=== PATIENT | female | born 1960 | race Caucasian/White ===

== ENCOUNTER 2019-11-19 11:29 | Outpatient (CLI) | payer BC, SELFPAY ==
--- NOTE | ~2019-11-19 | XR_ITS ---
XR hip LT min 3V w AP pelvis 11/19/2019 12:20 Indication: Left hip pain Procedure: AP pelvis and 3 views left hip Comparison: No prior studies for comparison. Findings: No fracture or traumatic malalignment. There is a right total hip arthroplasty. Pelvic ring s are intact. No sacral abnormality is seen. No soft tissue abnormality. Impression: 1: No acute bone or joint abnormality. Reviewed, dictated and finalized at location B. Impression: 1: No acute bone or joint abnormality.
--- NOTE | ~2019-11-19 | XR_ITS ---
EXAMINATION: XR hand BI arthritis min 3V DATE: 11/19/2019 12:20 INDICATION: Pain in joints of right hand. TECHNIQUE: 4 views of right hand and 4 views of left hand on a total of 7 radiographs were obtained. COMPARISON: Right hand radiograph 11/11/2005 FINDINGS: RIGHT HAND: Bone alignment is normal. No acute fracture. There is an old healed fracture of diaphysis of fifth metacarpal. There is mild osteoarthritis of triscaphe joint, first carpometacarpal joint, f irst and second metacarpophalangeal joints, and most of the interphalangeal joints. LEFT HAND: Bone alignment is normal. No fracture. There is mild osteoarthritis of triscaphe joint, fi rst carpometacarpal joint, first-third metacarpophalangeal joints, and most of the interphalangeal leona ints. IMPRESSION: 1. Polyarticular osteoarthritis. Reviewed, dictated and finalized at location A.
== END 2019-11-19 11:30 | disposition home or self-care (01) ==
PROVIDERS: PCP Family Medicine; Visit Provider Physician Assistant
DX: R20.0 Anesthesia of skin (principal); R20.2 Paresthesia of skin; M19.041 Primary osteoarthritis, right hand; M19.042 Primary osteoarthritis, left hand
CPT/HCPCS: 73130; 73502

== ENCOUNTER 2020-09-16 14:43 | Outpatient (CLI) | payer BC, SELFPAY ==
--- NOTE | ~2020-09-16 | MM_ITS ---
EXAMINATION: MM screening [place] BI w roberto HISTORY: Screening mammogram TECHNIQUE: Craniocaudal and mediolateral oblique 3-D tomosynthesis images were obtained and synthetic 2-D images were generated. CAD analysis was submitted and interpreted. COMPARISON: 12/17/2012 BREAST PARENCHYMAL COMPOSITION: There are scattered areas of fibroglandular density. FINDINGS: There is no evidence of suspicious mass, calcification, or architectural distortion to sugg est malignancy in either breast. There has been no suspicious interval change. IMPRESSION: 1. No mammographic evidence of malignancy. 2. Recommend routine screening mammography in one year. BI-RADS Category 1: Negative Reviewed, dictated and finalized at location A.
== END 2020-09-16 14:44 | disposition home or self-care (01) ==
LOC: ANHIMG 14:45
PROVIDERS: PCP Family Medicine; Visit Provider Obstetrics & Gynecology
DX: Z12.31 Encounter for screening mammogram for malignant neoplasm of breast (principal)
CPT/HCPCS: 77063; 77067

== ENCOUNTER 2021-05-29 09:56 | Outpatient (CLI) | payer BC, OTHER, SELFPAY ==
--- NOTE | ~2021-05-29 | DEXA_ITS ---
Bone Density Report Name: ALLYSSA GALVEZ Age: 61 Sex: Female Ethnicity: White Date of : 1960 Indication: postmenopausal; height loss; Referring Provider: MASOOD REBOLLEDO Study: Bone densitometry was performed. Exam Date: May 29, 2021 Accession number: [id number] Bone Density: Region BMD T-score Z-score Classification AP Spine (L1, L2, L3) 1.041 0.2 1.8 Normal Femoral Neck (Left) 0.816 -0.3 1.1 Normal Total Hip (Left) 0.960 0.1 1.2 Normal World Health Organization criteria for BMD impression classify patients as: Normal (T-score at or above -1.0), Osteopenia (T-score between -1.0 and -2.5), or Osteoporosis (T-score at or below -2.5). 10-year Fracture Risk: FRAX not reported because: All T-scores for Spine Total, Hip Total, Femoral Neck at or above -1.0 Clinical Information Provided by Patient: Patient maximum height was 70 Menopause Age: 54 No regular weight bearing exercise Does not regularly consume dairy products Drinks caffeinated beverages Onset of menses at age 13 Number of children 3 Impression: The patient has normal bone mass. Discussion: BONE DENSITY IS ABOVE THE MINIMUM DESIRABLE LEVEL AT ALL SKELETAL SITES TESTED. This patient?s bone mineral density is above the minimum desirable level (T-score -1.0 or better) at all sites measured. The patient should follow a healthful lifestyle (good nutrition with adequate calcium and vitamin D, and appropriate weight-bearing exercise). Follow-Up: Consider repeating this study in 5 years or sooner if there is some new clinical indication. Reported by: [facility] on 05/29/2021 10:13:00 AM. Reviewed, dictated and finalized at location Shara DAILEY
== END 2021-05-29 09:57 | disposition home or self-care (01) ==
LOC: ANHIMG 09:58
PROVIDERS: PCP Family Medicine; Visit Provider Family Medicine
DX: Z78.0 Asymptomatic menopausal state (principal)
CPT/HCPCS: 77080

== ENCOUNTER 2022-04-21 07:11 | Outpatient (CLI) | payer OTHER, BC, SELFPAY ==
--- NOTE | ~2022-04-21 | XR_ITS ---
XR lumbar spine min 4V 04/21/2022 07:40 Indication: Chronic low back pain Procedure: 5 views lumbar spine Comparison: 09/25/2005 Findings: There is disc narrowing at all lumbar levels. Vertebral body heights are maintained. There is facet hypertrophy at L3-4, L4-5 and L5-S1. No evidence for spondylolisthesis. There is atheroscler osis of the aorta. There is mild levoscoliosis. Pedicles intact. There is a right total hip arthropla sty. Impression: 1: Moderate lumbar spondylosis. Reviewed, dictated and finalized at location A. GER INSTALLATION Impression: 1: Moderate lumbar spondylosis.
--- NOTE | ~2022-04-21 | XR_ITS ---
XR cervical spine 4-5V 04/21/2022 07:40 Indication: Chronic neck pain Procedure: 5 views of the cervical spine Comparison: No prior studies for comparison. Findings: There is disc narrowing with hypertrophic endplate changes at C5-6 and C6-7. There are prom inent ventral osteophytes at multiple levels. Vertebral body heights are maintained. No prevertebral soft tissue swelling. There is multilevel uncinate hypertrophy. Lung apices are normal. There is marquis tid atherosclerosis. Odontoid process is normal. Impression: 1: Moderate cervical spondylosis. Reviewed, dictated and finalized at location A. ODITY DIRECTOR Impression: 1: Moderate cervical spondylosis.
== END 2022-04-21 07:12 | disposition home or self-care (01) ==
PROVIDERS: PCP Family Medicine; Visit Provider Nurse Practitioner Family
DX: M54.2 Cervicalgia (principal); M54.50 Low back pain, unspecified; G89.29 Other chronic pain; M43.06 Spondylolysis, lumbar region; M43.02 Spondylolysis, cervical region
CPT/HCPCS: 72050; 72110

== ENCOUNTER 2022-05-21 01:08 | Day surgery (SDC) | payer OTHER, SELFPAY ==
[2022-05-15 16:40] VITALS: BMI 26.2
[2022-05-21 11:15] VITALS: BP 125/69; PULSE 67; RESP 17; TEMP 36.1; O2SAT 98; BMI 25.9
--- NOTE | 2022-05-21 11:16 | PM.HPGS ---
History of Present Illness History of Present Illness Consent: Risks, benefits, and alternatives have been discussed and questions answered. Patient agrees to proceed with procedure. Chief complaint: neoplasm screening Narrative: Jesse Maya is a 62 year old female Presents for screening colonoscopy. Patient reports that her current weight appetite and bowel movements are normal. Patient denies abdominal pain. She has had no bleeding. Family history noncontributory. Patient has never had a prior colonoscopy. Review of Systems Review of Systems: Review of systems noncontributory. FORMERLY [facility] Past Medical History Medical History (Updated 05/21/22 @ 11:18 by Diony Juarez MD) Anxiety Arthritis of left knee Back pain Carpal tunnel syndrome Chronic, continuous use of opioids COPD, mild Encounter for immunization ABY (generalized anxiety disorder) High risk medication use Hyperlipidemia Hypothyroidism Insomnia Left hip pain Lumbago of lumbar region with sciatica Lumbar spine pain secondary to spondylosis Numbness and tingling in both hands Osteoarthritis involving multiple joints on both sides of body Pain of joint of both hands Pneumonia right Taking multiple medications for chronic disease UGI bleed from gastric ulcers due to non-steroidal therapy Surgical History Surgical History History of ear surgery left ear- multiple surgeries History of hip surgery right hip- LACHO 2011 Anterior Family History Family History Mother Diabetes mellitus Grandparent Family history of malignant neoplasm of breast in first degree relative Social History Social History Smoking packs per day: 1 Smoking cigarettes per day: 20.0 Years smoked: 35 Smoking pack-years: 35.00 Smoking status: Former smoker Tobacco type: cigarettes Second hand tobacco smoke exposure: No Smoking end date: 03/04/12 Alcohol intake: current Alcohol use details: consumes 3 hard liquor drinks socially Substance use: never Substance use type: does not use Living arrangements: with family Occupation/Education: occupation 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[employer] Gender identity (if verbalized by the patient): Female Spiritual care concerns: No Meds Home Medications and Allergies Home Medications Medication Instructions Recorded Confirmed Type trazodone 50 mg tablet 50 mg PO QHS PRN sleep #90 tabs 01/24/22 05/21/22 Rx hydrocodone 5 mg-acetaminophen 325 1 tablet PO Q6H PRN pain #120 tabs 05/17/22 05/21/22 Rx mg tablet Allergies Allergy/AdvReac Type Severity Reaction Status Date / Time Penicillins Allergy Severe Hives Verified 05/21/22 11:08 NSAIDS (Non-Steroidal AdvReac Unknown BLEEDING Verified 05/21/22 11:08 Anti-Inflamma ULCER Exam Narrative: Physical exam reveals patient be alert. Vital signs stable. HEENT exam is unremarkable. Patient anicteric. Lungs are clear to auscultation and percussion. Heart is without murmur or extra sounds. Abdominal exam bowel sounds are present soft nontender with no hepatosplenomegaly. Digital external rectal exam is normal. Assessment and Plan Assessment and plan (1) Encounter for screening colonoscopy: Code(s): Z12.11 - Encounter for screening for malignant neoplasm of colon Status: Acute Assessment and Plan: Patient presents for screening colonoscopy. She appears to be at average risk for colon polyps. Further recommendations may be given after endoscopy.
[2022-05-21] MEDS: LACTATED RINGERS 1,000 ML 150 ML IV CONT (11:24)
--- NOTE | 2022-05-21 12:03 | WPDANESEPPF ---
Anes - Initial Pre Proc Eval Procedure: Operation Date: 05/21/22 12:30 Proposed Procedures p Screening Colonoscopy - Diony Juarez MD Date/Time: 05/21/22 12:03 Surgeon: Diony Juarez MD Pre Op Diagnosis: neoplasm screening Patient Data Age: 62 Gender: F Height: 1.75 m Weight: 79.7 kg Last Vital Signs Temp 97 F L 05/21/22 11:15 Pulse 67 05/21/22 11:15 Resp 17 05/21/22 11:15 BP 125/69 05/21/22 11:15 Pulse Ox 98 05/21/22 11:15 O2 Del Method Room Air 05/21/22 11:15 Allergies Allergy/AdvReac Type Severity Reaction Status Date / Time Penicillins Allergy Severe Hives Verified 05/21/22 11:08 NSAIDS (Non-Steroidal AdvReac Unknown BLEEDING Verified 05/21/22 11:08 Anti-Inflamma ULCER Home Medications Medication Instructions Recorded Confirmed Type trazodone 50 mg tablet 50 mg PO QHS PRN sleep #90 tabs 01/24/22 05/21/22 Rx hydrocodone 5 mg-acetaminophen 325 1 tablet PO Q6H PRN pain #120 tabs 05/17/22 05/21/22 Rx mg tablet Patient hx anesthesia problems: none Family hx anesthesia problems: none Results Review: All pre-operative results and documents have been reviewed as part of the pre-operative evaluation. FORMERLY [facility] Past Medical History Medical History (Updated 05/21/22 @ 11:18 by Diony Juarez MD) Anxiety Arthritis of left knee Back pain Carpal tunnel syndrome Chronic, continuous use of opioids COPD, mild Encounter for immunization ABY (generalized anxiety disorder) High risk medication use Hyperlipidemia Hypothyroidism Insomnia Left hip pain Lumbago of lumbar region with sciatica Lumbar spine pain secondary to spondylosis Numbness and tingling in both hands Osteoarthritis involving multiple joints on both sides of body Pain of joint of both hands Pneumonia right Taking multiple medications for chronic disease UGI bleed from gastric ulcers due to non-steroidal therapy Surgical History Surgical History History of ear surgery left ear- multiple surgeries History of hip surgery right hip- LACHO 2010 Anterior Family History Family History Mother Diabetes mellitus Grandparent Family history of malignant neoplasm of breast in first degree relative Social History Social History Smoking packs per day: 1 Smoking cigarettes per day: 20.0 Years smoked: 35 Smoking pack-years: 35.00 Smoking status: Former smoker Tobacco type: cigarettes Second hand tobacco smoke exposure: No Smoking end date: 03/04/12 Alcohol intake: current Alcohol use details: consumes 3 hard liquor drinks socially Substance use: never Substance use type: does not use Living arrangements: with family Occupation/Education: occupation 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 Informed Consent: The patient's anesthetic plan and its attendant risks and benefits were discussed with the patient/family/POA. Questions were solicited and answers provided to the satisfaction of the patient/family/POA.
[2022-05-21 12:53] VITALS: BP 117/86; PULSE 80; RESP 18; O2SAT 98
[2022-05-21 13:03] VITALS: BP 120/76; PULSE 77; RESP 16; O2SAT 97
[2022-05-21 13:13] VITALS: BP 117/76; PULSE 77; RESP 24; O2SAT 100
== END 2022-05-21 13:23 | disposition home or self-care (01) ==
PROVIDERS: PCP Family Medicine; Visit Provider Internal Medicine Gastroenterology
PROC: 0DJD8ZZ Inspection of Lower Intestinal Tract, Via Natural or Artificial Opening Endoscopic (ICD-10-PCS; CPT 45378; principal; 2022-05-21 12:30)
DX: Z12.11 Encounter for screening for malignant neoplasm of colon (principal); D12.2 Benign neoplasm of ascending colon; K64.8 Other hemorrhoids; K57.32 Diverticulitis of large intestine without perforation or abscess without bleeding; F41.1 Generalized anxiety disorder; Z87.891 Personal history of nicotine dependence; Z79.891 Long term (current) use of opiate analgesic
CPT/HCPCS: 45385; 88305; J2704; J7120

== ENCOUNTER 2022-07-09 06:37 | Outpatient (CLI) | payer OTHER, SELFPAY ==
--- NOTE | ~2022-07-09 | MR_ITS ---
EXAMINATION: MR knee LT wo con DATE: 07/09/2022 07:40 INDICATION: Left knee osteoarthritis. TECHNIQUE: Magnetic resonance imaging (MRI) of the left knee was performed without intravenous contra st. Sequences included axial PD-weighted FS FSE, coronal PD-weighted FSE and PD-weighted FS FSE, sagi ttal PD-weighted FSE, and sagittal T2-weighted FS FSE. COMPARISON: Left knee radiographs 03/27/2022 FINDINGS: Medial compartment: Medial meniscus is normal. There is cartilage surface irregularity of femoral condyle and tibial cond yle. Osteophytes are noted. Lateral compartment: There is a complex tear of body and posterior horn of lateral meniscus. There is partial-thickness ca rtilage loss of femoral condyle, deep at the central and posterior articular surface. There is partia l-thickness cartilage loss of tibial condyle, deep at the posterolateral articular surface, there is mild subchondral edema-like marrow signal intensity. Osteophytes are noted. Patellofemoral compartment: There is cartilage surface irregularity of patella. There is full-thickness cartilage loss of central trochlea. Osteophytes are noted. Ligaments and tendons: The anterior and posterior cruciate ligaments are normal. There are changes of prior sprains of media l collateral ligament and fibular collateral ligament characterized by thickening and increased signa l intensity proximally. There is mild patellar tendinopathy. Fluid: There is a moderate-sized knee joint effusion. There is trace fluid in a Glynn's cyst. There is mild prepatellar and superficial infrapatellar bursitis. IMPRESSION: 1. Severe chondrosis of patellofemoral compartment, moderate chondrosis of lateral compartment, and m ild chondrosis of medial compartment. 2. Complex tear of lateral meniscus. 3. Moderate-sized knee joint effusion. Reviewed, dictated and finalized at location A. IMPRESSION: 1. Severe chondrosis of patellofemoral compartment, moderate chondrosis of late ral compartment, and mild chondrosis of medial compartment. 2. Complex tear of lateral meniscus. 3. Moderate-sized knee joint effusion.
== END 2022-07-09 06:38 | disposition home or self-care (01) ==
PROVIDERS: PCP Family Medicine; Visit Provider Orthopaedic Surgery
DX: M17.12 Unilateral primary osteoarthritis, left knee (principal); M22.2X2 Patellofemoral disorders, left knee; S83.282A Other tear of lateral meniscus, current injury, left knee, initial encounter; M25.462 Effusion, left knee
CPT/HCPCS: 73721

== ENCOUNTER 2022-08-23 09:16 | Outpatient (CLI) | payer OTHER, SELFPAY ==
--- NOTE | 2022-08-23 09:45 | ECG_ITS ---
Measurements Intervals [place] Rate: 63 P: 66 IL: 171 QRS: 40 QRSD: 98 T: 68 QT: 396 QTc: 407 Interpretive Statements SINUS RHYTHM NO PREVIOUS ECG AVAILABLE FOR COMPARISON Electronically Signed On 08-23-2022 13:33:17 CDT by Navya Madrid M.D.
== END 2022-08-23 09:17 | disposition home or self-care (01) ==
LOC: ANHSURGERY 09:20
PROVIDERS: PCP Family Medicine; Visit Provider Orthopaedic Surgery
DX: F17.210 Nicotine dependence, cigarettes, uncomplicated (principal)
CPT/HCPCS: 93005

== ENCOUNTER 2022-08-27 00:29 | Day surgery (SDC) | payer OTHER, SELFPAY ==
[2022-08-22 16:17] VITALS: BMI 25.7
--- NOTE | 2022-08-22 16:33 | PC.NURSE ---
Report to the Outpatient Waiting Room, entrance under the green pavilion located off [facility], at time 0600 on date _08/27/22. Planned Procedure Time: _0730. Time changes happen often and if your time is changed the preop area will call you the afternoon before. - You and your visitor will be asked to self-screen and do not enter if you have any COVID symptoms. - A mask is optional within the hospital at this time. Patients may have clear liquids (water, carbonated beverages, clear teas, apple juice) until 3 hours prior to surgery with a maximum of 20 ounces. - No food from midnight until time of surgery - Infants may have breast milk until 4 hours before surgery, infant formula 6 hours prior to surgery. - Children will be allowed to drink immediately following surgery. If applicable, please bring a bottle or sippy cup to assist with drinking. Juice, water, soda, and popsicles are readily available. For infants on formula, please bring formula the day of surgery. Pacifiers are allowed. Take the following medications with a SIP of water the morning of surgery: _hydrocodone____ DO NOT STOP ANY OF YOUR OTHER PRESCRIPTION MEDICATIONS PRIOR TO SURGERY ?EXCEPT THE FOLLOWING Medications to discontinue per physician _n/a Date to take last dose Please no make-up, nail kyrgyz, hairspray, perfume, deodorant, or body powder the day of surgery. No jewelry (including any body piercings) or valuables the day of surgery, leave them at home. Please take a shower or bath the night before, or the morning of, surgery with an antibacterial soap. Wear comfortable, loose fitting clothing. Children are encouraged to wear pajamas. - Jewelry must be removed prior to entering the operating room. Rings and piercings that are not removed may be cut off. - The hospital will not accept responsibility for valuables. - Please leave all valuables, including medications, at home the day of surgery. If you are going home after surgery, a licensed cdl a driver must drive you home. - NO public transportation without another adult if you receive anesthesia. - We recommend that an adult stay with you for 24 hours following discharge. - We also recommend that you do not drive, make important decision, drink alcoholic beverages, or take any drugs that were not prescribed by your health care provider for at least 24 hours after your discharge time. For Pediatric surgeries, we recommend two adults accompany the child home. Follow any additional instructions given to you from your surgeon. If you or anyone in your household have experienced Covid symptoms in the past week, please notify your surgeon or the nurse liaison at the phone number below for possible testing. Telephone instructions given to Jesse Maya_and asked if any additional questions and then verbalized understanding. Patient advised to call surgeon office or pre surgery nurse liaison [phone] if any additional questions.
[2022-08-27] VITALS (10 sets, daily range): BP systolic 99–118; BP diastolic 58–73; PULSE 56–82; RESP 10–18; TEMP 36.2–36.6; O2SAT 94–100
--- NOTE | 2022-08-27 06:50 | WPDANESEPPF ---
Anes - Initial Pre Proc Eval Procedure: Operation Date: 08/27/22 07:30 Proposed Procedures p Left Knee Arthroscopy with Meniscectomy - Aiden Schmitt MD Date/Time: 08/27/22 06:50 Surgeon: Aiden Schmitt MD Pre Op Diagnosis: Lt Knee Lateral Meniscal Tear Patient Data Age: 62 Gender: F Height: 1.75 m Weight: 79 kg Allergies Allergy/AdvReac Type Severity Reaction Status Date / Time Penicillins Allergy Severe Hives Verified 08/23/22 08:56 NSAIDS (Non-Steroidal AdvReac Unknown BLEEDING Verified 08/23/22 08:56 Anti-Inflamma ULCER Home Medications Medication Instructions Recorded Confirmed Type trazodone 100 mg tablet 100 mg PO QHS #90 tabs 07/27/22 08/23/22 Rx hydrocodone 5 mg-acetaminophen 325 1 tablet PO Q6H PRN pain #120 tabs 08/16/22 08/23/22 Rx mg tablet Patient hx anesthesia problems: none Family hx anesthesia problems: none Results Review: All pre-operative results and documents have been reviewed as part of the pre-operative evaluation. [facility] Past Medical History Medical History Anxiety Arthritis of left knee Back pain Carpal tunnel syndrome Chronic, continuous use of opioids Encounter for immunization ABY (generalized anxiety disorder) High risk medication use Hyperlipidemia Hypothyroidism Insomnia Left hip pain Lumbago of lumbar region with sciatica Lumbar spine pain secondary to spondylosis Numbness and tingling in both hands Osteoarthritis involving multiple joints on both sides of body Pain of joint of both hands Pneumonia right Taking multiple medications for chronic disease Tear of lateral meniscus of left knee UGI bleed from gastric ulcers due to non-steroidal therapy Surgical History Surgical History History of ear surgery left ear- multiple surgeries History of hip surgery right hip- LACHO 2010 Anterior Family History Family History Mother Diabetes mellitus Grandparent Family history of malignant neoplasm of breast in first degree relative Social History Social History Smoking packs per day: 1 Smoking cigarettes per day: 20.0 Years smoked: 35 Smoking pack-years: 35.00 Smoking status: Former smoker Tobacco type: cigarettes Second hand tobacco smoke exposure: No Smoking end date: 03/04/12 Alcohol intake: current Alcohol use details: consumes 3 hard liquor drinks socially Substance use: never Substance use type: does not use Current Housing: Decline to Answer Concerned About Future Housing: Decline to Answer Difficulty Paying Gas/Electric Bills: Decline to Answer Difficulty Paying for Meds: Decline to Answer Currently Unemployed: Decline to Answer Education: Decline to Answer Difficulty w/ Childcare or Family Care: Decline to Answer Living arrangements: with family Occupation/Education: occupation 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 Informed Consent: The patient's anesthetic plan and its attendant risks and benefits were discussed with the patient/family/POA. Questions were solicited and answers provided to the satisfaction of the patient/family/POA.
[2022-08-27] MEDS: LACTATED RINGERS 1,000 ML 30 ML IV CONT ×2 (07:00→08:22)
[2022-08-27] MEDS: ACETAMINOPHEN 500 MG TABLET 1000 MG PO (07:00)
--- NOTE | 2022-08-27 07:17 | WPDHPUPDATE1 ---
History and Physical Update Update Date/Time: 08/27/22 07:17 History and Physical has been reviewed, including an updated exam of the patient. There are NO changes in the patient's condition. Risks, benefits, and alternatives have been discussed and questions answered. Patient agrees to proceed with procedure.
[2022-08-27] MEDS: ceFAZolin 2 GM/D5W 50 ML 2 GM/50 ML BAG IVPB (07:24)
[2022-08-27] MEDS: LIDOCAINE HCL 1% LOCAL INJ 10 ML VIAL 20 ML INFILTRATE (07:49)
--- NOTE | 2022-08-27 08:27 | P.OP_ITS ---
Procedure Note - Detailed Date of Procedure 08/27/22 Pre-op Diagnosis Lt Knee Lateral Meniscal Tear Post-op Diagnosis Same Procedure Performed left knee arthroscopy partial lateral meniscectomy Surgeon Aiden Schmitt MD Anesthesia General Description of Procedure The patient was identified and proper site identified and she was taken to the operating room, transferred to the OR table placing her supine taking care to pad the torso and extremities. After general anesthetic induction and intubation, a nonsterile tourniquet was placed high on the left thigh but was not inflated. The left lower extremity was positioned, prepped and draped in usual sterile fashion. 10 cc of 1% lidocaine was injected into the subcutaneous tissue in the area of the portals at start of the procedure, and an additional 10 at the end. The portals were established and the arthroscopy was carried out. There was extensive grade 2 and early three changes noted in the anterior compartment. Medial articular meniscal cartilage was in fairly decent shape. Laterally is extensive grade 3 and early grade 4 changes of the articular cartilage was complex tearing of the lateral meniscus from the posterior horn in the midbody. This was contoured back to stable rim with basket forceps and shaver. There was also some prominent synovial tissue anteriorly overlying the anterior horns of both menisci and this was debrided with the shaver. Arthrocare Wand was used for hemostasis. The knee was flushed with a copious a mount of arthroscopic fluid and equipment was removed. Portals were closed with three O nylon suture and a sterile dressing was applied. She tolerated the procedure well, was awakened, extubated and taken to recovery area in stable condition. There were no known intraoperative complications. Estimated blood loss was negligible; she received perioperative antibiotics. Estimated Blood Loss 5 Tourniquet Time 0 Drains No Packing No Pathology None sent Complications No immediate complications Condition Stable Disposition PACU [facility] Billing Surgery - Charge Forward: Surgery Billing ([id number])
[2022-08-27] MEDS: fentaNYL CITRATE INJ (*CRX) 100 MCG/2 ML VIAL 25 MCG IV PUSH ×6 (08:44→09:09)
[2022-08-27] MEDS: oxyCODONE HCL (*CRX) 5 MG TAB IR PO (09:41)
== END 2022-08-27 10:44 | disposition home or self-care (01) ==
PROVIDERS: PCP Family Medicine; Visit Provider Orthopaedic Surgery
PROC: (CPT 29870; principal; 2022-08-27 07:30)
DX: M23.352 Other meniscus derangements, posterior horn of lateral meniscus, left knee (principal); F41.1 Generalized anxiety disorder; Z87.891 Personal history of nicotine dependence
CPT/HCPCS: 29881; A9270; J0690; J1100; J1170; J2250; J2405; J2704; J3010; J7120

== ENCOUNTER 2023-05-06 07:06 | Outpatient (CLI) | payer OTHER, SELFPAY ==
--- NOTE | ~2023-05-06 | XR_ITS ---
EXAMINATION: XR knee LT min 4V DATE: 05/06/2023 07:26 INDICATION: History of arthroscopic knee surgery TECHNIQUE: Four views of the left knee were obtained. COMPARISON: 03/27/2022 FINDINGS: Alignment is normal. No fracture or osteochondral lesion. There is tricompartmental osteoar thritis, moderate in the lateral compartment. There is a moderate-sized chronic knee joint effusion. Calcified atherosclerosis is noted. IMPRESSION: 1. Osteoarthritis and moderate size chronic knee joint effusion without acute osseous abnormality. Reviewed, dictated and finalized at location B. [employer] INSPECTOR IMPRESSION: 1. Osteoarthritis and moderate size chronic knee joint effusion without acute o sseous abnormality.
== END 2023-05-06 07:07 | disposition home or self-care (01) ==
PROVIDERS: PCP Family Medicine; Visit Provider Orthopaedic Surgery
DX: Z98.890 Other specified postprocedural states (principal); M17.12 Unilateral primary osteoarthritis, left knee; M25.462 Effusion, left knee
CPT/HCPCS: 73564

== ENCOUNTER 2023-09-07 09:29 | Outpatient (CLI) | payer OTHER, SELFPAY ==
--- NOTE | ~2023-09-07 | MR_ITS ---
EXAMINATION: MR shoulder LT wo con DATE: 09/07/2023 10:22 INDICATION: Incomplete rotator cuff tear or rupture of left shoulder. TECHNIQUE: Magnetic resonance imaging (MRI) of the left shoulder was performed without intravenous co ntrast. Sequences included axial PD-weighted FS FSE, coronal oblique PD-weighted FS FSE and T2-weight ed FS FSE, and sagittal oblique T2-weighted FS FSE and T1-weighted FSE. COMPARISON: Left shoulder radiograph 08/26/2023 FINDINGS: Coracoacromial arch: The acromion undersurface is curved in morphology (type II). There is moderate acromioclavicular join t osteoarthritis. Subacromial spurring is noted. There is severe subacromial/subdeltoid bursitis. Rotator cuff: There is a bursal-sided tear of supraspinatus tendon measuring 5 mm anterior to posterior by 11 mm pr oximal to distal by 80% tendon thickness. There is moderate infraspinatus tendinopathy. Teres minor t endon is normal. There is mild subscapularis tendinopathy. The rotator cuff muscle bellies are normal . Biceps tendon and glenoid labrum: Biceps tendon is in bicipital groove. Intra-articular biceps tendon is normal. Glenoid labrum is norm al. Fluid: There is no glenohumeral joint effusion. Bones/cartilage: There is partial-thickness cartilage loss of glenoid, deep at the central glenoid. There is shallow p artial-thickness cartilage loss of humeral head. Osteophytes are noted. IMPRESSION: 1. Bursal-sided partial thickness rotator cuff tear. 2. Moderate glenohumeral joint chondrosis. 3. Moderate acromioclavicular joint osteoarthritis. 4. Severe subacromial/subdeltoid bursitis. Reviewed, dictated and finalized at location A.
== END 2023-09-07 09:30 | disposition home or self-care (01) ==
PROVIDERS: PCP Family Medicine; Visit Provider Orthopaedic Surgery
DX: M75.112 Incomplete rotator cuff tear or rupture of left shoulder, not specified as traumatic (principal); M94.212 Chondromalacia, left shoulder; M19.012 Primary osteoarthritis, left shoulder; M75.52 Bursitis of left shoulder
CPT/HCPCS: 73221

== ENCOUNTER 2023-10-15 11:34 | Outpatient (CLI) | payer OTHER, SELFPAY ==
--- NOTE | 2023-10-15 11:49 | ECG_ITS ---
Test Date: 2023-10-15 11:57:44 Measurements Intervals [place] Rate: 56 P: -2 WY: 160 QRS: 34 QRSD: 106 T: 61 QT: 417 QTc: 403 Interpretive Statements SINUS BRADYCARDIA LOW QRS VOLTAGE IN PRECORDIAL LEADS [QRS DEFLECTION < 1.0 mV IN CHEST LEADS] No previous ECG available for comparison Electronically Signed On 10-15-2023 12:02:19 CDT by Breanna Pedraza M.D.
[2023-10-15 12:09] LABS: Hematocrit 38.5 % (37.0-47.0); Hemoglobin 12.5 g/dL (12.0-15.0)
== END 2023-10-15 11:35 | disposition home or self-care (01) ==
PROVIDERS: Anesthesiology; PCP Family Medicine; Visit Provider Orthopaedic Surgery
DX: Z01.818 Encounter for other preprocedural examination (principal); D64.9 Anemia, unspecified; F17.200 Nicotine dependence, unspecified, uncomplicated
CPT/HCPCS: 36415; 85014; 85018; 93005

== ENCOUNTER 2023-10-18 00:34 | Day surgery (SDC) | payer OTHER, SELFPAY ==
[2023-10-14 09:59] VITALS: BMI 26.0
--- NOTE | 2023-10-14 10:03 | PC.NURSE ---
Report to the Outpatient Waiting Room, entrance under the green pavilion located off [facility], at time _1000__ on date 10/18/23 _. Planned Procedure Time: _1200_. Time changes happen often and if your time is changed the preop area will call you the afternoon before. - You and your visitor will be asked to self-screen and do not enter if you have any COVID symptoms. - A mask is optional within the hospital at this time. Patients may have clear liquids (water, carbonated beverages, clear teas, apple juice) until 3 hours prior to surgery with a maximum of 20 ounces. - No food from midnight until time of surgery - Infants may have breast milk until 4 hours before surgery, formula 6 hours prior to surgery. - Children will be allowed to drink immediately following surgery. If applicable, please bring a bottle or sippy cup to assist with drinking. Juice, water, soda, and popsicles are readily available. For infants on formula, please bring formula the day of surgery. Pacifiers are allowed. Take the following medications with a SIP of water the morning of surgery: ___PAIN PILL_IF NEEDED DO NOT STOP ANY OF YOUR OTHER PRESCRIPTION MEDICATIONS PRIOR TO SURGERY ?EXCEPT THE FOLLOWING Medications to discontinue per physician VITAMINS AND SUPPLIMENTS Date to take last dose 10/15/23 Please no make-up, nail eritrean, hairspray, perfume, deodorant, or body powder the day of surgery. No jewelry (including any body piercings) or valuables the day of surgery, leave them at home. Please take a shower or bath the night before, or the morning of, surgery with an antibacterial soap. Wear comfortable, loose fitting clothing. Children are encouraged to wear pajamas. - Jewelry must be removed prior to entering the operating room. Rings and piercings that are not removed may be cut off. - The hospital will not accept responsibility for valuables. - Please leave all valuables, including medications, at home the day of surgery. If you are going home after surgery, a licensed drivers license examiner must drive you home. - NO public transportation without another adult if you receive anesthesia. - We recommend that an adult stay with you for 24 hours following discharge. - We also recommend that you do not drive, make important decision, drink alcoholic beverages, or take any drugs that were not prescribed by your health care provider for at least 24 hours after your discharge time. For Pediatric surgeries, we recommend two adults accompany the child home. Follow any additional instructions given to you from your surgeon. If you or anyone in your household have experienced Covid symptoms in the past week, please notify your surgeon or the nurse liaison at the phone number below for possible testing. Telephone instructions given to and asked if any additional questions and then verbalized understanding. Patient advised to call surgeon office or pre surgery nurse liaison [phone] if any additional questions.
[2023-10-18] VITALS (12 sets, daily range): BP systolic 98–122; BP diastolic 52–97; PULSE 48–73; RESP 10–18; TEMP 36.3; O2SAT 92–100
--- NOTE | 2023-10-18 09:37 | PM.HPGS ---
History of Present Illness History of Present Illness Consent: Risks, benefits, and alternatives have been discussed and questions answered. Patient agrees to proceed with procedure. Chief complaint: Lt Shoulder Partial Rot Cuff Tear Narrative: Preoperative history and physical dated: 10/18/23 Jesse Maya is a 63 year old female who complains of severe left shoulder pain. She fell about a year ago. Pain in the lateral part of the shoulder is getting much worse. She has difficulty with any reaching or overhead activities. She has night pain. No numbness, tingling, or other associated symptoms. Review of Systems Review of Systems: All systems reviewed & are unremarkable except as noted in HPI and below PMFSH Past Medical History Medical History Anxiety Arthritis of left knee Back pain Carpal tunnel syndrome Chronic, continuous use of opioids Encounter for immunization ABY (generalized anxiety disorder) High risk medication use Hyperlipidemia Hypothyroidism Insomnia Left hip pain Lumbago of lumbar region with sciatica Lumbar spine pain secondary to spondylosis Numbness and tingling in both hands Osteoarthritis involving multiple joints on both sides of body Pain of joint of both hands Pneumonia right Taking multiple medications for chronic disease Tear of lateral meniscus of left knee UGI bleed from gastric ulcers due to non-steroidal therapy Surgical History Surgical History History of ear surgery left ear- multiple surgeries History of hip surgery right hip- [facility] 2010 Anterior Hx of arthroscopy of left knee August 27, 2022 -- partial lateral meniscectomy Family History Family History Mother Diabetes mellitus Grandparent Family history of malignant neoplasm of breast in first degree relative Social History Social History Smoking packs per day: 1 Smoking cigarettes per day: 20.0 Years smoked: 35 Smoking pack-years: 35.00 Smoking status: Former smoker Tobacco type: cigarettes Second hand tobacco smoke exposure: No Smoking end date: 03/04/12 Additional smoking assessment comments: 2013 Alcohol intake: current Drinks per week: 3 Alcohol use details: consumes 3 hard liquor drinks socially Substance use: never Substance use type: does not use Current Housing: Decline to Answer Concerned About Future Housing: Decline to Answer Difficulty Paying Gas/Electric Bills: Decline to Answer Difficulty Paying for Meds: Decline to Answer Currently Unemployed: Decline to Answer Education: Decline to Answer Difficulty w/ Childcare or Family Care: Decline to Answer Living arrangements: with family Occupation/Education: occupation 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 [employer] Gender identity (if verbalized by the patient): Female Spiritual care concerns: No Meds Home Medications and Allergies Home Medications Medication Instructions Recorded Confirmed Type biotin 1 mg capsule 1 mg PO DAILY #30 caps 01/07/23 10/18/23 Rx knee high compression stockings #1 ea 01/07/23 10/14/23 Rx mecobalamin (vitamin B12) 1,000 1,000 mcg PO DAILY #30 tabs 01/07/23 10/18/23 Rx mcg chewable tablet ferrous gluconate 225 mg (27 mg 225 mg PO DAILY 02/07/23 10/18/23 History iron) tablet (Fergon) multivitamin 1 tablet PO DAILY 02/07/23 10/18/23 History trazodone 50 mg tablet 100 mg PO QHS #60 tabs 07/08/23 10/18/23 Rx hydrocodone 5 mg-acetaminophen 325 1 tablet PO Q6H PRN pain #120 tabs 09/20/23 10/18/23 Rx mg tablet oxycodone-acetaminophen 5 mg-325 1 - 2 tablet PO Q6H PRN pain 10/22/23 Rx mg tablet (scale score 7-10) #30 tabs Allergies Allergy/AdvReac Type Severity Reaction St
[2023-10-18] MEDS: ACETAMINOPHEN 500 MG TABLET 1000 MG PO (10:18)
[2023-10-18] MEDS: LACTATED RINGERS 1,000 ML 30 ML IV CONT ×2 (10:36→14:10)
--- NOTE | 2023-10-18 11:51 | WPDANESEPPF ---
Anes - Initial Pre Proc Eval Procedure: Operation Date: 10/18/23 12:00 Proposed Procedures p Left Shoulder Arthroscopic Rotator Cuff Repair, Proceed as Indicated - Kishore Sorto MD Date/Time: 10/18/23 11:51 Surgeon: Kishore Sorto MD Pre Op Diagnosis: Lt Shoulder Partial Rot Cuff Tear Patient Data Age: 63 Gender: F Height: 1.75 m Weight: 79.8 kg Last Vital Signs Temp 97.3 F L 10/18/23 10:23 Pulse 69 10/18/23 10:23 Resp 16 10/18/23 10:23 BP 122/79 10/18/23 10:23 Pulse Ox 100 10/18/23 10:23 O2 Del Method Room Air 10/18/23 10:23 Allergies Allergy/AdvReac Type Severity Reaction Status Date / Time Penicillins Allergy Severe Hives Verified 10/18/23 10:09 NSAIDS (Non-Steroidal AdvReac Unknown BLEEDING Verified 10/18/23 10:09 Anti-Inflamma ULCER Home Medications Medication Instructions Recorded Confirmed Type biotin 1 mg capsule 1 mg PO DAILY #30 caps 01/07/23 10/18/23 Rx knee high compression stockings #1 ea 01/07/23 10/14/23 Rx mecobalamin (vitamin B12) 1,000 1,000 mcg PO DAILY #30 tabs 01/07/23 10/18/23 Rx mcg chewable tablet ferrous gluconate 225 mg (27 mg 225 mg PO DAILY 02/07/23 10/18/23 History iron) tablet (Fergon) multivitamin 1 tablet PO DAILY 02/07/23 10/18/23 History trazodone 50 mg tablet 100 mg PO QHS #60 tabs 07/08/23 10/18/23 Rx hydrocodone 5 mg-acetaminophen 325 1 tablet PO Q6H PRN pain #120 tabs 09/20/23 10/18/23 Rx mg tablet Patient hx anesthesia problems: none Family hx anesthesia problems: none Results Review: All pre-operative results and documents have been reviewed as part of the pre-operative evaluation. [facility] Past Medical History Medical History Anxiety Arthritis of left knee Back pain Carpal tunnel syndrome Chronic, continuous use of opioids Encounter for immunization ABY (generalized anxiety disorder) High risk medication use Hyperlipidemia Hypothyroidism Insomnia Left hip pain Lumbago of lumbar region with sciatica Lumbar spine pain secondary to spondylosis Numbness and tingling in both hands Osteoarthritis involving multiple joints on both sides of body Pain of joint of both hands Pneumonia right Taking multiple medications for chronic disease Tear of lateral meniscus of left knee UGI bleed from gastric ulcers due to non-steroidal therapy Surgical History Surgical History History of ear surgery left ear- multiple surgeries History of hip surgery right hip- [facility] 2010 Anterior Hx of arthroscopy of left knee August 27, 2022 -- partial lateral meniscectomy Family History Family History Mother Diabetes mellitus Grandparent Family history of malignant neoplasm of breast in first degree relative Social History Social History Smoking packs per day: 1 Smoking cigarettes per day: 20.0 Years smoked: 35 Smoking pack-years: 35.00 Smoking status: Former smoker Tobacco type: cigarettes Second hand tobacco smoke exposure: No Smoking end date: 03/04/12 Additional smoking assessment comments: 2012 Alcohol intake: current Drinks per week: 3 Alcohol use details: consumes 3 hard liquor drinks socially Substance use: never Substance use type: does not use Current Housing: Decline to Answer Concerned About Future Housing: Decline to Answer Difficulty Paying Gas/Electric Bills: Decline to Answer Difficulty Paying for Meds: Decline to Answer Currently Unemployed: Decline to Answer Education: Decline to Answer Difficulty w/ Childcare or Family Care: Decline to Answer Living arrangements: with family Occupation/Education: occupation 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
--- NOTE | 2023-10-18 12:02 | WPDHPUPDATE1 ---
History and Physical Update Update Date/Time: 10/18/23 12:02 History and Physical has been reviewed, including an updated exam of the patient. There are NO changes in the patient's condition. Risks, benefits, and alternatives have been discussed and questions answered. Patient agrees to proceed with procedure.
--- NOTE | 2023-10-18 12:13 | WPDANESPNB ---
Anes - Peripheral Nerve Block Date/Time: 10/18/23 12:13 I have discussed with the patient/family/POA the placement of a peripheral nerve block for post-operative pain management, including associated risks, benefits, complications, and side effects. Alternative methods of post-operative analgesia were detailed. Questions were solicited and answers provided to the satisfaction of the patient/family/POA. Time-Out: A pre-procedural Time-Out was completed immediately before starting the procedure and confirmed: Patient Identification, Site, Procedure, Patient Position and the Availability of Requisite Equipment. Clinical Indications: Acute post-operative pain management requested by the operative surgeon. Nerve Block Insertion Note Anes-nerve block: interscalene left Patient position: supine Skin prep: chlorhexidine Needle: 22 gauge, stimulating, insulated echogenic needle. Needle length: 80 mm Technique: ultrasound Injectate: other (Bupiv 0.5%, 15 mls. ) Observations: tolerated well and parasthesia Procedure start time:: 1156 Procedure end time:: 1210
[2023-10-18] MEDS: ceFAZolin 2 GM/D5W 50 ML 2 GM/50 ML BAG IVPB (12:40)
[2023-10-18] MEDS: EPINEPHrine HCL INJ 1 MG/ML AMPUL 3 MG IRRIGATION (13:06)
--- NOTE | 2023-10-18 14:18 | P.OP_ITS ---
Procedure Note - Detailed Date of Procedure 10/18/23 Pre-op Diagnosis Left Shoulder Partial Thickness Rotator Cuff Tear Post-op Diagnosis Other (1. Left shoulder partial-thickness rotator cuff tear 2. Subacromial impingement) Procedure Performed Left shoulder 1. Arthroscopic rotator cuff repair 2. Arthroscopic subacromial decompression Surgeon iKshore Sorto MD Anesthesia General and Regional ( interscalene block) Findings High-grade partial-thickness bursal side rotator cuff tear with significant int erstitial component. The bursal tissues were only mildly split and minimally retracted. A locking loop suture and a horizontal mattress suture were used to nicely reapproximate the tendon, and secure it laterally with a SwiveLock anchor. Due to the significant interstitial component, the Regeneten collagen implant was placed over the area to promote healing. A subacromial decompression was performed where there was clear impingement from the anterolateral acromion and coracoacromial arch on the edge of the bursal side tear. There were mild degenerative changes and the joint both on the humeral and glenoid side with grade 2/Iii chondromalacia. Description of Procedure Preoperative antibiotics were given. An interscalene block was administered in the preoperative area. The patient was bought brought to the operating room. A general anesthetic was administered. The patient was carefully positioned in the beach chair position. The head and neck were carefully positioned. The non operative extremity was also carefully positioned. The shoulder was prepped and draped in the usual sterile fashion. Examination was performed. Standard posterior and anterior arthroscopic portals were established. Inflow achieved with the arthroscopic pump using saline and epinephrine. The glenohumeral joint was carefully inspected. There were [id number] degenerative changes on the glenoid and humerus. The labrum showed only minimal fraying. The biceps was intact. This subscapularis was normal. The articular supraspinatus showed only minimal, 5% fraying. Attention was turned to the subacromial space. A complete bursectomy was performed. The tear configuration was carefully assessed. The fairly small bursal side tear and split was secured with horizontal mattress suture and a locking loop suture. These 3 suture limbs were brought laterally to a SwiveLock anchor. Prior to repair, the interstitial component was probed and found to be fairly extensive. Gentle debridement with the shaver was performed to promote healing. At this time it was elected to provide enhance biology to the tendon with the Regeneten collagen implant. It was secured medially with 5 VICENTE soft tissue anchors and laterally with 2 bone anchors. The arthroscopic instruments were removed. The wounds were closed with 3-0 Monocryl subcuticular suture and steri strips. There were no complications. A sling was applied and the patient brought to the recovery room. Implants Arthrex 4.75 SwiveLock anchor. Holder and nephew, Regeneten collagen implant with 5 VICENTE anchors and 2 peek bone anchors. Estimated Blood Loss 10 Pathology None sent Complications No immediate complications Condition Stable Disposition PACU [facility] Billing Surgery - Charge Forward: Surgery Billing
[2023-10-18] MEDS: fentaNYL CITRATE INJ (*CRX) 100 MCG/2 ML VIAL 25 MCG IV PUSH ×8 (14:55→16:02)
[2023-10-18] MEDS: oxyCODONE HCL (*CRX) 5 MG TAB IR PO (15:58)
[2023-10-18] MEDS: GLYCOPYRROLATE INJ (*SP) 0.2 MG/ML VIAL IV PUSH (16:42)
== END 2023-10-18 17:05 | disposition home or self-care (01) ==
PROVIDERS: PCP Family Medicine; Visit Provider Orthopaedic Surgery
PROC: (CPT 29805; principal; 2023-10-18 12:00)
DX: M75.112 Incomplete rotator cuff tear or rupture of left shoulder, not specified as traumatic (principal); M25.812 Other specified joint disorders, left shoulder; M94.212 Chondromalacia, left shoulder; G89.18 Other acute postprocedural pain; E03.9 Hypothyroidism, unspecified; E78.5 Hyperlipidemia, unspecified
CPT/HCPCS: 29827; 29826; 64415; 36415; 85014; 85018; 93005; A4565; A9270; C1713; J0171; J0690; J1596; J2250; J2270; J2405; J2704; J3010; J7120

== ENCOUNTER 2024-11-04 13:20 | Outpatient (CLI) | payer OTHER, SELFPAY ==
--- NOTE | 2024-11-04 13:50 | NEURO_ITS ---
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 ? # Mild right Carpal Tunnel Syndrome. ? # Right Ulnar Neuropathy across the elbow. ? # Normal Needle/ EMG exam. Nerve Conduction Studies ?Stim Site NR Peak (ms) P-T Amp (?V) Site1 Site2 Delta-P (ms) Dist (cm) Mehul (m/s) Left Median Anti Sensory (2-3nd Digit) Wrist ? 3.8 21.7 Wrist 2-3nd Digit 3.8 14.0 37 Wrist ? 4.1 21.9 Wrist 2-3nd Digit 3.8 14.0 37 Right Median Anti Sensory (2-3nd Digit) Wrist ? 4.9 20.6 Wrist 2-3nd Digit 4.9 14.0 29 Wrist ? 5.2 20.8 Wrist 2-3nd Digit 4.9 14.0 29 Left Radial Anti Sensory (Base 1st Digit) Wrist ? 2.0 21.6 Wrist Base 1st Digit 2.0 0.0 Right Radial Anti Sensory (Base 1st Digit) Wrist ? 2.3 20.4 Wrist Base 1st Digit 2.3 0.0 Left Ulnar Anti Sensory (5th Digit) Wrist ? 2.8 21.8 Wrist 5th Digit 2.8 14.0 50 Right Ulnar Anti Sensory (5th Digit) Wrist ? 2.9 19.7 Wrist 5th Digit 2.9 14.0 48 ?Stim Site NR Onset (ms) O-P Amp (mV) Site1 Site2 Delta-0 (ms) Dist (cm) Mehul (m/s) Left Median Motor (Abd Poll Brev) Wrist ? 3.8 3.0 Elbow Wrist 6.0 30.0 50 Elbow ? 9.8 2.5 Right Median Motor (Abd Poll Brev) Wrist ? 3.8 2.6 Elbow Wrist 5.9 30.0 51 Elbow ? 9.7 2.6 Left Ulnar Motor (Abd Dig Minimi) Wrist ? 3.3 6.6 A Elbow Wrist 5.2 31.0 60 A Elbow ? 8.5 6.3 B Elbow Wrist 4.0 24.0 60 B Elbow ? 7.3 3.2 Right Ulnar Motor (Abd Dig Minimi) Wrist ? 3.5 7.5 A Elbow Wrist 6.2 31.0 50 A Elbow ? 9.7 5.8 B Elbow Wrist 4.1 22.0 54 B Elbow ? 7.6 6.8 F Wave Studies ?NR F-Lat (ms) L-R F-Lat (ms) Left Median (Mrkrs) (Abd Poll Brev) ? 32.92 0.00 Right Median (Mrkrs) (Abd Poll Brev) ? 32.92 0.00 Left Ulnar (Mrkrs) (Abd Dig Min) ? 30.94 0.55 Right Ulnar (Mrkrs) (Abd Dig Min) ? 30.39 0.55 Electromyography ?Side Muscle Nerve Root Ins Act Fibs Amp Dur Recrt Comment Right 1stDorInt Ulnar C8-T1 Nml Nml Nml Nml Nml Right Ext Indicis Radial (Post Int) C7-8 Nml Nml Nml Nml Nml Right Ext Digitorum Radial (Post Int) C7-8 Nml Nml Nml Nml Nml Right BrachioRad Radial C5-6 Nml Nml Nml Nml Nml Right PronatorTeres Median C6-7 Nml Nml Nml Nml Nml Right Abd Poll Brev Median C8-T1 Nml Nml Nml Nml Nml Right ABD Dig Min Ulnar C8-T1 Nml Nml Nml Nml Nml Right FlexPolLong Median (Ant Int) C7-8 Nml Nml Nml Nml Nml Right Abd Poll Long Radial (Post Int) C7-8 Nml Nml Nml Nml Nml Left 1stDorInt Ulnar C8-T1 Nml Nml Nml Nml Nml Left Ext Indicis Radial (Post Int) C7-8 Nml Nml Nml Nml Nml Left Ext Digitorum Radial (Post Int) C7-8 Nml Nml Nml Nml Nml Left BrachioRad Radial C5-6 Nml Nml Nml Nml Nml Left PronatorTeres Median C6-7 Nml Nml Nml Nml Nml Left Abd Poll Brev Median C8-T1 Nml Nml Nml Nml Nml Left ABD Dig Min Ulnar C8-T1 Nml Nml Nml Nml Nml Left FlexPolLong Median (Ant Int) C7-8 Nml Nml Nml Nml Nml Left Abd Poll Long Radial (Post Int) C7-8 Nml Nml Nml Nml Nml
--- OUTSIDE RECORDS SUMMARY | 2024-11-04 14:31 | XMS_ITS | Clinical Summary ---
Author Organization [facility] [employer] [facility] [place] Address [address] [address] Care Team Providers Care Motion Picture Camera Lens Technician Name Role Phone Alyson Montgomery MD Primary Care Provider [phone] Allergies Active Allergy Reactions Criticality Noted Date Comments Penicillins Hives High 12/07/2019 Medications traZODone (DESYREL) 50 mg tablet Take 1 Tablet by mouth nightly as needed. 01/24/2022 Active HYDROcodone-hector taminophen (NORCO) 5-325 mg tablet Take 1 Tablet by mouth every 6 hours as needed. 03/20/2022 Active Active Problems No known active problems Encounters Date Type Department Care Team Description 10/06/2024 External Device Data STL ABSTRACTION Provider, Abstract 10/06/2024 External Device Data STL ABSTRACTION Provider, Abstract 09/16/2024 External Device Data ST[facility] ABSTRACTION Provider, Abstract 09/15/2024 External Device Data [facility] ABSTRACTION Provider, Abstract 08/25/2024 External Device Data [facility] ABSTRACTION Provider, Abstract from Last 3 Months Immunizations Immunization Administration Dates Next Due INFLUENZA VACCINE QUADRIVALENT 3 YR UP PF IM 07/2021 INFLUENZA VACCINE TRIVALENT SPLIT VIRUS, (6 MOS UP), 0.5ML (PF), IM 12/11/2023 Family History Medical History Relation Name Comments COPD Brother 1 No Known Problems Brother 2 No Known Problems Brother 3 No Known Problems Brother 4 No Known Problems Daughter No Known Problems Father Diabetes Mother Breast Cancer Paternal Grandmother Diabetes Paternal Grandmother No Known Problems Sister No Known Problems Son 1 No Known Problems Son 2 Relation Name Status Comments Brother 1 Alive Brother 2 Alive Brother 3 Alive Brother 4 Alive Daughter Alive Father Maternal Grandfather Maternal Grandmother Mother Paternal Grandfather Paternal Grandmother Sister Alive Son 1 Alive Son 2 Alive Social History Tobacco Use Types Packs/Day Years Used Date Smoking Tobacco: Former Cigarettes Q uit: 04/16/2012 Smokeless Tobacco: Never Tobacco Cessation:Counseling Given: Not Answered Alcohol Use Standard Drinks/Week Comments Yes 2 (1 standard drink = 0.6 oz pur e alcohol) socially Comments No Sex and Gender Information Value Date Recorded Sex Assigned at Not on file Legal Sex Female 5:27 AM CDT Gender Identity Not on file Sexual Orientation Not on file Last Filed Vital Signs Vital Sign Reading Time Taken Comments Blood Pressure 102/64 04/08/2024 10:02 AM SALES ENABLEMENT ANALYST Pulse 65 04/19/2022 2:45 PM SALES ENABLEMENT ANALYST Temperature 36.7 C (98 F) 04/19/2022 2:45 PM SALES ENABLEMENT ANALYST Respiratory Rate 18 04/19/2022 2:45 PM SALES ENABLEMENT ANALYST Oxygen Saturation 97% 04/19/2022 2:45 PM SALES ENABLEMENT ANALYST Inhaled Oxygen Concentration - - Weight 82.6 kg (182 lb 3.2 oz) 04/08/2024 10:02 AM SALES ENABLEMENT ANALYST Height 175.3 cm (5' 9) 04/08/2024 10:02 AM SALES ENABLEMENT ANALYST Body Mass Index 26.91 04/08/2024 10:02 AM SALES ENABLEMENT ANALYST Plan of Treatment Health Maintenance Due Date Last Done Comments Pre-Diabetes and Diabetes Screening 1959 DTAP/TDAP/TD VACCINES (1 - Tdap) 1978 BREAST CANCER SCREENING 1999 COLORECTAL SCREENING 02/05/2004 Colorectal Cancer Screening 02/05/2004 FIT-DNA Q 3 years 02/05/2004 FIT/FOBT Q 1 year 02/05/2004 Flex Sig/CT Colonography Q 5 years 02/05/2004 PNEUMOCOCCAL VACCINE 50+ YEA RS (1 of 1 - PCV) 2009 ZOSTER VACCINE (1 of 2) 2009 OSTEOPOROSIS SCREENING 02/05/2024 INFLUENZA VACCINE (#1) 2024 12/11/2023, 2021 RSV VACCINE (60+ or ) (1 - 1-dose 75+ series) 2034 Insurance MEDICARE PART A HOSPITAL ONLY ALLEGIANCE OPEN ACCESS Care Teams Motion Picture Camera Lens Technician Relationship Specialty Start Date End Date Alyson Montgomery MD [address] [place] [address] PCP - General Family Practice 05/01/22
--- OUTSIDE RECORDS SUMMARY | 2024-11-04 14:31 | XMS_ITS | Clinical Summary ---
Author Organization [facility] Address [address] [place] [address] Care Team Providers Care Dirt Shoveler Name Role Phone Alyson Montgomery MD Primary Care Provider [phone] Allergies Active Allergy Reactions Criticality Noted Date Comments Penicillins Hives High 12/07/2019 Medications traZODone (DESYREL) 50 mg tablet TAKE 1 TABLET BY MOUTH EVERYDAY AT BEDTIME NEEDED FOR SLEEP 07/24/2021 Active HYDROcodone-hector taminophen (NORCO) 5-325 mg per tablet Take 1 tablet by mouth every 6 (six) hours as needed Active rosuvastatin (CRESTOR) 10 mg tablet Take 1 tablet (10 mg total) by mouth daily 90 tablet 3 03/20/2023 Active Active Problems Problem Noted Date Diagnosed Date Perforation of left tympanic membrane 12/31/2019 Chronic suppurative otitis media of left ear Mixed conductive and sensori neural hearing loss of left ear with restricted hearing of right ear 12/07/2019 Surgical History Surgery Date Site/Laterality Comments HIP SURGERY EAR SURGERY BLADDER SURGERY Medical History Medical History Date Comments HL (hearing loss) Family History Medical History Relation Name Comments No Known Problems Mother Relation Name Status Comments Mother Social History Tobacco Use Types Packs/Day Years Used Date Smoking Tobacco: Former Cigarettes 1 32 1 - 2011 Smokeless Tobacco: Never Alcohol Use Standard Drinks/Week Comments Yes 1 (1 standard drink = 0.6 oz pur e alcohol) Comments No Sex and Gender Information Value Date Recorded Sex Assigned at Not on file Legal Sex Female 9:16 AM CDT Gender Identity Female 05/01/2022 12:12 PM AMERICAN SIGN LANGUAGE INTERPRETER Sexual Orientation Straight 05/01/2022 12 :12 PM AMERICAN SIGN LANGUAGE INTERPRETER Obstetrics History Last Filed Vital Signs Vital Sign Reading Time Taken Comments Blood Pressure 120/79 08/22/2022 9:08 AM CDT Pulse 65 08/22/2022 9:08 AM CDT Temperature 36.2 C (97.2 F) 01/26/2020 7:39 AM AMERICAN SIGN LANGUAGE INTERPRETER Respiratory Rate 11 01/26/2020 11:4 0 AM AMERICAN SIGN LANGUAGE INTERPRETER Oxygen Saturation 99% 08/22/2022 9:08 AM CDT Inhaled Oxygen Concentration - - Weight 80.2 kg (176 lb 12.8 oz) 08/22/2022 9:08 AM CDT Height 175.3 cm (5' 9) 08/22/2022 9:08 AM CDT Body Mass Index 26.11 08/22/2022 9:08 AM CDT Plan of Treatment Health Maintenance Due Date Last Done Comments Breast Cancer Screening-Mammogram 1959 Cervical Cancer Screening 1959 Colon Cancer Screening-Colonoscopy 1959 Depression Screening 1959 Hepatitis C Screening 1959 Osteoporosis Screening-Bone Density Scan 1959 Hepatitis B Screening 1977 Pneumococcal vaccine 65+ (1 of 1 - PCV) 2009 Zoster Vaccine (1 of 2) 2009 Fall Risk Assessment 01/25/2021 01/26/2020 DTaP/Tdap/Td Vaccine (2 - Td or Tdap) 08/13/2022 08/13/2012 Covid-19 Vaccine (6 - 2023-2 5 season) 2023 11/20/2022, 09/18/2021, 01/21/2021, Additional history exists Well Visit 65+ 02/05/2024 Influenza Vaccine (#1) 2024 3, 12/06/2021, 12/27/2020, Additional history exists Insurance [employer]IGNA ALLEGIANCE [id number] BLUE ACCESS OR Care Teams Dirt Shoveler Relationship Specialty Start Date End Date Alyson Montgomery MD PCP - General Family Medicine 05/03/22
--- OUTSIDE RECORDS SUMMARY | 2024-11-04 14:31 | XMS_ITS | Patient Health Record ---
Author Organization [facility] Address [address] [place], [place] [id number] Care Team Providers Care Tobacco Sample Puller Name Role Phone Mark Montgomerya Primary Care Provider Unavailabl e Allergies Allergen (clinical drug ingredient) Drug/Non Drug Allergy documented on EMR Reaction Allergy Type Onset Date Status Penicillin Unknown Drug Allergy Active Reason For Referral No Information Social History Tobacco Use: Social History Observation Description Date Details (start date - stop date) Current Smoker NA - NA Tobacco Use/Smoking Question Answer Notes Tobacco use: current smoker Plan Of Treatment No Information Insurance Providers Payer Name Payer Address Payer Phone Subscriber Number Group Number Insured Name Patient Relationship to Insured Coverage Start Date Coverage End Date CIGNA [address] [place] [address] [id number] Jesse Maya Self - patient is the insured Medical (General) History Medical History History ICD Code artificial joint Pneumonia Leg/Feet cramps Arthritis Back Trouble Surgical History Surgery Date(Month/Year) hip surgery 2010 ear surgery 2020
== END 2024-11-04 13:21 | disposition home or self-care (01) ==
PROVIDERS: PCP Family Medicine; Visit Provider Family Medicine
DX: G56.01 Carpal tunnel syndrome, right upper limb (principal); G56.21 Lesion of ulnar nerve, right upper limb
CPT/HCPCS: 95886; 95911

== ENCOUNTER 2024-12-28 08:12 | Outpatient (CLI) | payer OTHER, SELFPAY ==
--- NOTE | 2024-12-28 | ECG_ITS ---
Test Date: 2024-12-28 08:43:55 Measurements Intervals [place] Rate: 58 P: 73 MI: 163 QRS: 55 QRSD: 89 T: 92 QT: 387 QTc: 382 Interpretive Statements SINUS BRADYCARDIA BORDERLINE ST-T WAVE ABNORMALITY- HIGH LATERAL LEADS BASELINE ARTIFACT- I, II, AVR, AVL BORDERLINE ECG Compared to ECG 10/15/2023 11:57:44 NO SIGNIFICANT CHANGE Electronically Signed On 12-28-2024 09:47:32 CDT by Yoel Pulido D.O.
--- OUTSIDE RECORDS SUMMARY | 2024-12-28 08:31 | XMS_ITS | Clinical Summary ---
Author Organization [facility] Address [address] [place] [address] Care Team Providers Care Notching Press Operator Name Role Phone Alyson Montgomery MD Primary Care Provider [phone] Allergies Active Allergy Reactions Criticality Noted Date [...] CDT Gender Identity Female 05/01/2022 12:12 PM UPPER STITCHER Sexual Orientation Straight 05/01/2022 12 :12 PM UPPER STITCHER Obstetrics History Last Filed Vital Signs Vital Sign Reading Time Taken Comments Blood Pressure 120/79 08/22/2022 9:08 AM CDT Pulse 65 08/22/2022 9:08 AM CDT Temperature 36.2 C (97.2 F) 01/26/2020 7:39 AM UPPER STITCHER Respiratory Rate 11 01/26/2020 11:4 0 AM UPPER STITCHER Oxygen Saturation 99% 08/22/2022 9:08 AM CDT [...] (2 - Td or Tdap) 08/13/2022 08/13/2012 Well Visit 65+ 02/05/2024 Covid-19 Vaccine (6 - 2024-2 6 season) 2024 11/20/2022, 09/18/2021, 01/21/2021, Additional history exists Influenza Vaccine (#1) 2024 , 12/06/2021, 12/27/2020, Additional history exists Insurance CIGNA ALLEGIANCE [employer] [facility] Address: [address] [place] [address] [facility] BLUE ACCESS [place] Care Teams Notching Press Operator Relationship Specialty Start Date End Date Alyson Montgomery MD PCP - General Family Medicine 05/03/22
--- OUTSIDE RECORDS SUMMARY | 2024-12-28 08:31 | XMS_ITS | Clinical Summary ---
Author Organization [facility] [employer] [facility] Address [address] [address] Care Team Providers Care Tinware Lithograph Press Operator Name Role Phone Alyson Montgomery MD Primary Care Provider [phone] Allergies Active Allergy Reactions Criticality Noted Date Comments Penicillins Hives High 12/07/2019 Medications traZODone (DESYREL) 50 mg tablet Take 1 Tablet by mouth nightly as needed. 01/24/2022 Active HYDROcodone-hector taminophen (NORCO) 5-325 mg tablet Take 1 Tablet by mouth every 6 hours as needed. 03/20/2022 Active Active Problems No known active problems Encounters Date Type Department Care Team Description 12/23/2024 External Device Data STL ABSTRACTION Provider, Abstract 12/22/2024 External Device Data ST[facility] ABSTRACTION Provider, Abstract 11/26/2024 1:00 PM CDT Immunization [facility] [address] [place] [address] Need for prophylactic vaccination and inoculation against influenza (Primary Dx) 11/17/2024 External Device Data STL ABSTRACTION Provider, Abstract 10/06/2024 External Device Data STL ABSTRACTION Provider, Abstract 10/06/2024 External Device Data STL ABSTRACTION Provider, Abstract from Last 3 Months Immunizations Immunization Administration Dates Next Due INFLUENZA VACCINE QUADRIVALENT 3 YR UP PF IM 07/2021 INFLUENZA VACCINE TRIVALENT SPLIT VIRUS, (6 MOS UP), 0.5ML (PF), IM 11/26/2024,12/11/2023 Family History Medical History Relation Name Comments [...] Comments Blood Pressure 102/64 04/08/2024 10:02 AM TRAY DRIER OPERATOR Pulse 65 04/19/2022 2:45 PM TRAY DRIER OPERATOR Temperature 36.7 C (98 F) 04/19/2022 2:45 PM TRAY DRIER OPERATOR Respiratory Rate 18 04/19/2022 2:45 PM TRAY DRIER OPERATOR Oxygen Saturation 97% 04/19/2022 2:45 PM TRAY DRIER OPERATOR Inhaled Oxygen Concentration - - Weight 82.6 kg (182 lb 3.2 oz) 04/08/2024 10:02 AM TRAY DRIER OPERATOR Height 175.3 cm (5' 9) 04/08/2024 10:02 AM TRAY DRIER OPERATOR Body Mass Index 26.91 04/08/2024 10:02 AM TRAY DRIER OPERATOR Plan of Treatment Health Maintenance Due Date [...] (1 of 2) 2009 OSTEOPOROSIS SCREENING 02/05/2024 RSV VACCINE (60+ or ) (1 - 1-dose 75+ series) 2034 INFLUENZA VACCINE Completed 11/26/2024, , 12/06/2021 Insurance MEDICARE PART A HOSPITAL ONLY [employer]LEGI[employer] OPEN ACCESS Care Teams Tinware Lithograph Press Operator Relationship Specialty Start Date End Date Alyson Montgomery MD [address] [place] [address] PCP - General Family Practice 05/01/22
[2024-12-28 08:37] LABS: Hematocrit 39.6 % (37.0-47.0); Hemoglobin 12.6 g/dL (12.0-15.0)
== END 2024-12-28 08:13 | disposition home or self-care (01) ==
LOC: ANHLAB 08:19
PROVIDERS: PCP Family Medicine; Visit Provider Anesthesiology
DX: Z01.818 Encounter for other preprocedural examination (principal); G56.00 Carpal tunnel syndrome, unspecified upper limb; F17.210 Nicotine dependence, cigarettes, uncomplicated; R94.31 Abnormal electrocardiogram [ECG] [EKG]
CPT/HCPCS: 36415; 85014; 85018; 93005

== ENCOUNTER 2024-12-31 07:10 | Day surgery (SDC) | payer OTHER, SELFPAY ==
--- NOTE | 2024-12-31 07:07 | PM.HPGS ---
History of Present Illness History of Present Illness Chief complaint: Bilateral Capral and Cubital Tunnel Syndrome Narrative: Patient seen and examined in pre-operative holding area. No interval change in medical history or symptoms. Patient recalls previous discussion of benefits and alternatives to procedure. Continues to desire to proceed with right endoscopic possible open carpal tunnel release and right cubital tunnel release. Reviewed procedure, post-op expectations and risks including but not limited to bleeding, infection, injury to tendon/nerve/vessel, decreased hand function, stiffness, RSD, no change or worsening of symptoms. I discussed the possible use of assistants and their participation in the case. Patient stated understanding and signed the consent form wishing to proceed. Review of Systems Review of Systems: All systems reviewed & are unremarkable except as noted in HPI and below PMFSH Past Medical History Medical History Tear of lateral meniscus of left knee Arthritis of left knee Encounter for immunization Chronic, continuous use of opioids Osteoarthritis involving multiple joints on both sides of body Left hip pain Numbness and tingling in both hands Pain of joint of both hands UGI bleed from gastric ulcers due to non-steroidal therapy Pneumonia right Lumbar spine pain secondary to spondylosis Carpal tunnel syndrome Taking multiple medications for chronic disease High risk medication use Lumbago of lumbar region with sciatica ABY (generalized anxiety disorder) Hypothyroidism Insomnia Back pain Anxiety Hyperlipidemia Surgical History Surgical History S/P rotator cuff repair Hx of arthroscopy of left knee August 27, 2022 -- partial lateral meniscectomy History of ear surgery left ear- multiple surgeries History of hip surgery right hip- LACHO 2010 Anterior Family History Family History Mother Diabetes mellitus Grandparent Family history of malignant neoplasm of breast in first degree relative Social History Social History Smoking packs per day: 1 Smoking cigarettes per day: 20.0 Years smoked: 35 Smoking pack-years: 35.00 Smoking status: Former smoker Tobacco type: cigarettes Second hand tobacco smoke exposure: No Smoking end date: 03/04/12 Additional smoking assessment comments: 2013 Alcohol intake: current Drinks per week: 1 Alcohol use details: OCCASIONAL Substance use: never Substance use type: does not use Current Housing: Decline to Answer Concerned About Future Housing: Decline to Answer Difficulty Paying Gas/Electric Bills: Decline to Answer Difficulty Paying for Meds: Decline to Answer Currently Unemployed: Decline to Answer Education: Decline to Answer Difficulty w/ Childcare or Family Care: Decline to Answer Living arrangements: with family Additional living arrangements comments: Occupation/Education: occupation 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[employer] Gender identity (if verbalized by the patient): Female Spiritual care concerns: No Meds Home Medications and Allergies Home Medications ?Medication ?Instructions ?Recorded ?Confirmed ?Type biotin 1 mg capsule 1 mg PO DAILY #30 caps 01/07/23 12/31/24 Rx knee high compression stockings #1 ea 01/07/23 08/12/24 Rx mecobalamin (vitamin B12) 1,000 1,000 mcg PO DAILY #30 tabs 01/07/23 12/31/24 Rx mcg chewable tablet ferrous gluconate 225 mg (27 mg 225 mg PO DAILY 02/07/23 12/31/24 History iron) tablet (Fergon) multivitamin 1 tablet PO DAILY 02/07/23 12/31/24 History pravastatin 10 mg tablet See Rx Instructions .Route 09/18/24 12/31/24 Rx .COMPLEX #90 tabs solifenacin 5 mg tablet (Vesicare) 5 mg PO DAILY #30 tabs 10/02/24 12/31/24 Rx hydrocodone 5 mg-acetaminophen 325 1 tablet PO Q6H PRN pain #120 tabs 12/09/24 12/31/24 Rx mg tablet trazodone 50 mg tablet 100 mg (2 x 50 mg) PO QHS 90 days 12/09/24 12/31/24 Rx #180 tabs Allergies Allergy/AdvReac Type Severity Reaction Status Date / Time Penicillins Allergy Severe Hives Verified 12/31/24 08:14 NSAIDS (Non-Steroidal AdvReac Unknown BLEEDING Verified 12/31/24 08:14 Anti-Inflamma ULCER Exam Narrative: unchanged Assessment and Plan Assessment and plan (1) Carpal tunnel syndrome: Qualifiers: Laterality: bilateral Qualified Code(s): G56.03 - Carpal tunnel syndrome, bilateral upper limbs Code(s): G56.00 - Carpal tunnel syndrome, unspecified upper limb Status: Acute Assessment and Plan: cont as above (2) Ulnar neuropathy at elbow of right upper extremity: Code(s): G56.21 - Lesion of ulnar nerve, right upper limb Status: Acute
--- NOTE | 2024-12-31 07:08 | W.PM.PROC2 ---
Procedure Note - Detailed Date of Procedure 12/31/24 Pre-op Diagnosis Bilateral Capral and Cubital Tunnel Syndrome Post-op Diagnosis Same Procedure Performed right ectr and CuTR Surgeon Rae Fernández MD [facility] diony massey pa-c Anesthesia MAC Description of Procedure INFORMED CONSENT: The patient was seen and examined and marked in the pre-op area.? The patient signed the consent form. PROCEDURE IN DETAIL:The patient taken back to OR on the stretcher in supine position. Time out performed with anesthesia, surgeon and staff agreeing on patient's name site and surgery to be performed SCDs were placed on the lower extremities and inflated. A tourniquet was placed on {right} upper extremity and antibiotics given IV After anesthesia administered sedation I injected {10}cc 1%lido with epi and 0.5% marcaine plain at the operative sites The?{right upper extremity}?was prepped and draped in sterile fashion the??{right upper extremity} was? exsanguinated with Esmarch bandage and tourniquet inflated to 250mmHg I made a transverse incision in the {right} volar distal wrist crease through skin and dermis with 15 blade scalpel.? Littler scissors spread down to antebrachial fascia. A small incision was made in antebrachial fascia allowing access to Carpal tunnel. I proceeded with sequential dilation staying in line with the ring finger and hugging the hook of the hamate.? I then used the synovial elevator to free any adhesions from the underside of the transverse carpal ligament. Next I was able to insert the Microaire endoscopic carpal tunnel device with direct visualization of the transverse fibers on the monitor and proceeded with complete segmental retrograde release of the ligament in its entirety.? I irrigated with normal saline and closed with 4-0 monocryl for dermis and subcuticular closure. I next proceeded with making a longitudinal incision between two heads for flexor carpi ulnaris at end of {right} cubital tunnel with 15 blade scalpel.? Littler scissors were used to spread down to FCU fascia.? An incision was made in FCU fascia and ulnar nerve identified exiting cubital tunnel.? I proceeded with complete retrograde release of the cubital tunnel including 7cm proximal for the intermuscular septum.? The nerve appeared appeared fatty and atrophic but with visible vaso nervorum.? There was no subluxation on full elbow range of motion. ? I irrigated with normal saline and closure with 3-0 vicryl and 4-0 monocryl. The incisions were covered with Dermabond then 4x4s, penny, and a posterior elbow and volar wrist splint for patient safety, security and comfort and secured with hector bandages after the tourniquet was let down noting the hand was warm and well perfused.? Patient awaken from anesthesia and transferred to recovery in stable condition Complications - none EBL- 1cc Disposition - home in stable condition Diony Massey PA-C was essential for positioning, retraction, closure and dressing placement. [facility] [place] [place] - Charge Forward: Surgery Billing ([id number] same for diony escobar )
--- OUTSIDE RECORDS SUMMARY | 2024-12-31 07:17 | XMS_ITS | Clinical Summary ---
Author Organization [facility] Address [address] [place] [address] Care Team Providers Care Converter Supervisor Name Role Phone Alyson Montgomery MD Primary Care Provider [phone] Allergies Active Allergy Reactions Criticality Noted Date [...] CDT Gender Identity Female 05/01/2022 12:12 PM METAL MACHINE SETTER Sexual Orientation Straight 05/01/2022 12 :12 PM METAL MACHINE SETTER Obstetrics History Last Filed Vital Signs Vital Sign Reading Time Taken Comments Blood Pressure 120/79 08/22/2022 9:08 AM CDT Pulse 65 08/22/2022 9:08 AM CDT Temperature 36.2 C (97.2 F) 01/26/2020 7:39 AM METAL MACHINE SETTER Respiratory Rate 11 01/26/2020 11:4 0 AM METAL MACHINE SETTER Oxygen Saturation 99% 08/22/2022 9:08 AM CDT [...] 12/27/2020, Additional history exists Insurance CIGNA AL[place] [employer] [place] [facility] BLUE ACCESS [place] Care Teams Converter Supervisor Relationship Specialty Start Date End Date Alyson Montgomery MD PCP - General Family Medicine 05/03/22
--- OUTSIDE RECORDS SUMMARY | 2024-12-31 07:17 | XMS_ITS | Clinical Summary ---
Author Organization [facility] [employer] [facility] Address [address] [address] Care Team Providers Care Manager Post Name Role Phone Alyson Montgomery MD Primary Care Provider [phone] Allergies Active Allergy Reactions Criticality Noted Date [...] Provider, Abstract 11/26/2024 1:00 PM CDT Immunization [facility] [address] [place] [address] Need for prophylactic vaccination and [...] Comments Blood Pressure 102/64 04/08/2024 10:02 AM HOSPITALITY COORDINATOR Pulse 65 04/19/2022 2:45 PM HOSPITALITY COORDINATOR Temperature 36.7 C (98 F) 04/19/2022 2:45 PM HOSPITALITY COORDINATOR Respiratory Rate 18 04/19/2022 2:45 PM HOSPITALITY COORDINATOR Oxygen Saturation 97% 04/19/2022 2:45 PM HOSPITALITY COORDINATOR Inhaled Oxygen Concentration - - Weight 82.6 kg (182 lb 3.2 oz) 04/08/2024 10:02 AM HOSPITALITY COORDINATOR Height 175.3 cm (5' 9) 04/08/2024 10:02 AM HOSPITALITY COORDINATOR Body Mass Index 26.91 04/08/2024 10:02 AM HOSPITALITY COORDINATOR Plan of Treatment Health Maintenance Due Date [...] 12/06/2021 Insurance MEDICARE PART A HOSPITAL ONLY * Guarantor: [employer]) Account Type Relation to Patient Date of Phone Billing Address Corporate Employer ATTN: ALEYDA HOPKINS [address] [place] [address] [employer]LEGI[employer] OPEN ACCESS Care Teams Manager Post Relationship Specialty Start Date End Date Alyson Montgomery MD [address] [place] [address] PCP - General Family Practice 05/01/22
--- OUTSIDE RECORDS SUMMARY | 2024-12-31 07:18 | XMS_ITS | Patient Health Record ---
Author Organization [facility] Address [address] [place], [place] [id number] Care Team Providers Care Food Production Worker Name Role Phone UlisesAlyson Primary Care Provider Unavailabl e Allergies Allergen (clinical drug ingredient) Drug/Non Drug Allergy documented on EMR Reaction Allergy Type Onset Date Status Penicillin Unknown Drug Allergy Active Reason For Referral No Information Social History Tobacco Use: Social History Observation Description Date Details (start date - stop date) Current Smoker NA - NA Social History Tobacco Use: Social Info Question Answer Notes Tobacco Use/Smoking Tobacco use: current smoker Additional Details Category Social Info Options Details Drugs/Alcohol: Do you drink alcohol? Soci ally Plan Of Treatment No Information Insurance Providers Payer Name Payer Address Payer Phone Subscriber Number Group Number Insured Name Patient Relationship to Insured Coverage Start Date Coverage End Date [employer] [address] [place] [phone] [id number] Jesse Maya Self - patient is the insured Medical (General) History Medical History History ICD Code artificial joint Pneumonia Leg/Feet cramps Arthritis Back Trouble Surgical History Surgery Date(Month/Year) hip surgery 2010 ear surgery 2020
--- NOTE | 2024-12-31 07:25 | WPDANESEPPF ---
Anes - Initial Pre Proc Eval Procedure: Operation Date: 12/31/24 09:00 Proposed Procedures p Right Endoscopic Carpal Tunnel Release, Possible Open Carpal Tunnel Release - Rae Fernández MD s Right Cubital Tunnel Release - Rae Fernández MD Date/Time: 12/31/24 07:25 Surgeon: Rae Fernández MD Pre Op Diagnosis: Bilateral Capral and Cubital Tunnel Syndrome Patient Data Age: 64 Gender: F Height: 1.75 m Weight: 80 kg Allergies Allergy/AdvReac Type Severity Reaction Status Date / Time Penicillins Allergy Severe Hives Verified 12/21/24 14:23 NSAIDS (Non-Steroidal AdvReac Unknown BLEEDING Verified 12/21/24 14:23 Anti-Inflamma ULCER Home Medications ?Medication ?Instructions ?Recorded ?Confirmed ?Type biotin 1 mg capsule 1 mg PO DAILY #30 caps 01/07/23 12/21/24 Rx knee high compression stockings #1 ea 01/07/23 08/12/24 Rx mecobalamin (vitamin B12) 1,000 1,000 mcg PO DAILY #30 tabs 01/07/23 12/21/24 Rx mcg chewable tablet ferrous gluconate 225 mg (27 mg 225 mg PO DAILY 02/07/23 12/21/24 History iron) tablet (Fergon) multivitamin 1 tablet PO DAILY 02/07/23 12/21/24 History pravastatin 10 mg tablet See Rx Instructions .Route 09/18/24 12/21/24 Rx .COMPLEX #90 tabs solifenacin 5 mg tablet (Vesicare) 5 mg PO DAILY #30 tabs 10/02/24 12/21/24 Rx hydrocodone 5 mg-acetaminophen 325 1 tablet PO Q6H PRN pain #120 tabs 12/09/24 12/21/24 Rx mg tablet trazodone 50 mg tablet 100 mg (2 x 50 mg) PO QHS 90 days 12/09/24 12/21/24 Rx #180 tabs Patient hx anesthesia problems: none Family hx anesthesia problems: none Results Review: All pre-operative results and documents have been reviewed as part of the pre-operative evaluation. [facility] Past Medical History Medical History Tear of lateral meniscus of left knee Arthritis of left knee Encounter for immunization Chronic, continuous use of opioids Osteoarthritis involving multiple joints on both sides of body Left hip pain Numbness and tingling in both hands Pain of joint of both hands UGI bleed from gastric ulcers due to non-steroidal therapy Pneumonia right Lumbar spine pain secondary to spondylosis Carpal tunnel syndrome Taking multiple medications for chronic disease High risk medication use Lumbago of lumbar region with sciatica ABY (generalized anxiety disorder) Hypothyroidism Insomnia Back pain Anxiety Hyperlipidemia Surgical History Surgical History S/P rotator cuff repair Hx of arthroscopy of left knee August 27, 2022 -- partial lateral meniscectomy History of ear surgery left ear- multiple surgeries History of hip surgery right hip- LACHO 2010 Anterior Family History Family History Mother Diabetes mellitus Grandparent Family history of malignant neoplasm of breast in first degree relative Social History Social History Smoking packs per day: 1 Smoking cigarettes per day: 20.0 Years smoked: 35 Smoking pack-years: 35.00 Smoking status: Former smoker Tobacco type: cigarettes Second hand tobacco smoke exposure: No Smoking end date: 03/04/12 Additional smoking assessment comments: 2012 Alcohol intake: current Drinks per week: 1 Alcohol use details: OCCASIONAL Substance use: never Substance use type: does not use Current Housing: Decline to Answer Concerned About Future Housing: Decline to Answer Difficulty Paying Gas/Electric Bills: Decline to Answer Difficulty Paying for Meds: Decline to Answer Currently Unemployed: Decline to Answer Education: Decline to Answer Difficulty w/ Childcare or Family Care: Decline to Answer Living arrangements: with family Additional living arrangements comments: Occupation/Education: occupation 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 Informed Consent: The patient's anesthetic plan and its attendant risks and benefits were discussed with the patient/family/POA. Questions were solicited and answers provided to the satisfaction of the patient/family/POA.
[2024-12-31 07:50] VITALS: BP 121/74; PULSE 63; RESP 18; TEMP 37.1; O2SAT 99
[2024-12-31] MEDS: ACETAMINOPHEN 500 MG TABLET 1000 MG PO (07:58)
[2024-12-31] MEDS: LACTATED RINGERS 1,000 ML 30 ML IV CONT (08:15)
[2024-12-31] MEDS: CLINDAMYCIN 900 MG/NS 50 ML 900 MG/50 ML PIGGYBACK 50 MG IVPB (09:12)
[2024-12-31] MEDS: LIDO 1%/EPINEPHRINE 1:100,000 20 ML VIAL (09:27)
[2024-12-31] MEDS: BUPivacaine HCL 0.5% 10 ML AMP (09:27)
[2024-12-31 09:45] VITALS: BP 81/55; PULSE 66; RESP 14; O2SAT 96
--- NOTE | 2024-12-31 09:50 | WPDANESPN ---
Anes - Prog Note Post-Op Date/Time: 12/31/24 09:50 Cardiovascular status: normal Respiratory status: normal Airway patency: baseline Mental status: baseline Post-Op hydration status: normal Vital Signs: Last Vital Signs Temp 98.8 F 12/31/24 07:50 Pulse 63 12/31/24 07:50 Resp 18 12/31/24 07:50 BP 121/74 12/31/24 07:50 Pulse Ox 99 12/31/24 07:50 O2 Del Method Room Air 12/31/24 07:50 Pain Score (VAS): 0 I/O: Intake & Output 12/30/24 12/31/24 12/31/24 23:59 07:59 15:59 Intake Total 50 Balance 50 Post-procedural complaints: none Patient Feedback: Patient satisfied with anesthetic care.
[2024-12-31 09:55] VITALS: BP 85/50; PULSE 68; RESP 14; O2SAT 100
[2024-12-31 10:05] VITALS: BP 92/56; PULSE 62; RESP 15; O2SAT 97
== END 2024-12-31 10:24 | disposition home or self-care (01) ==
PROVIDERS: PCP Family Medicine; Visit Provider Plastic Surgery
PROC: 01N54ZZ Release Median Nerve, Percutaneous Endoscopic Approach (ICD-10-PCS; CPT 29848; principal; 2024-12-31 09:00)
PROC: (CPT 64718; 2024-12-31 09:00)
DX: G56.01 Carpal tunnel syndrome, right upper limb (principal); G56.21 Lesion of ulnar nerve, right upper limb
CPT/HCPCS: 29848; 64718

== ENCOUNTER 2025-02-11 09:14 | Day surgery (SDC) | payer OTHER, SELFPAY ==
[2025-02-02 09:50] VITALS: BMI 26.6
--- NOTE | 2025-02-11 06:54 | P.OP_ITS ---
Procedure Note - Detailed Date of Procedure 02/11/25 Pre-op Diagnosis Bilateral Carpal and Cubital Tunnel Syndrome Post-op Diagnosis Same Procedure Performed left ectr and CuTR Surgeon Rae Fernández MD Abrading Machine Tender diony massey pa-c Anesthesia MAC Description of Procedure INFORMED CONSENT: The patient was seen and examined and marked in the pre-op area.? The patient signed the consent form. PROCEDURE IN DETAIL:The patient taken back to OR on the stretcher in supine position. Time out performed with anesthesia, surgeon and staff agreeing on patient's name site and surgery to be performed SCDs were placed on the lower extremities and inflated. A tourniquet was placed on {left} upper extremity and antibiotics given IV After anesthesia administered sedation I injected {10}cc 1%lido with epi and 0.5% marcaine plain at the operative sites The?{left upper extremity}?was prepped and draped in sterile fashion the??{left upper extremity} was? exsanguinated with Esmarch bandage and tourniquet inflated to 250mmHg I made a transverse incision in the {left} volar distal wrist crease through skin and dermis with 15 blade scalpel.? Littler scissors spread down to antebrachial fascia. A small incision was made in antebrachial fascia allowing access to Carpal tunnel. I proceeded with sequential dilation staying in line with the ring finger and hugging the hook of the hamate.? I then used the synovial elevator to free any adhesions from the underside of the transverse carpal ligament. Next I was able to insert the Microaire endoscopic carpal tunnel device with direct visualization of the transverse fibers on the monitor and proceeded with complete segmental retrograde release of the ligament in its entirety.? I irrigated with normal saline and closed with 4-0 monocryl for dermis and subcuticular closure. I next proceeded with making a longitudinal incision between two heads for flexor carpi ulnaris at end of {left} cubital tunnel with 15 blade scalpel.? Littler scissors were used to spread down to FCU fascia.? An incision was made in FCU fascia and ulnar nerve identified exiting cubital tunnel.? I proceeded with complete retrograde release of the cubital tunnel including 7cm proximal for the intermuscular septum.? The nerve appeared healthy with visible vaso nervorum.? There was no subluxation on full elbow range of motion. ? I irrigated with normal saline and closure with 3-0 vicryla dn 4-0 monocryl. The incisions were covered with Dermabond then 4x4s, penny, and a posterior elbow and volar wrist splint for patient safety, security and comfort and secured with hector bandages after the tourniquet was let down noting the hand was warm and well perfused.? Patient awaken from anesthesia and transferred to recovery in stable condition Complications - none EBL- 1cc Disposition - home in stable condition Diony Massey PA-C was essential for positioning, retraction, closure and dressing placement. [facility] Billing Surgery - Charge Forward: Surgery Billing ([id number] same for diony adding )
--- NOTE | 2025-02-11 06:54 | WPDHPUPDATE1 ---
History and Physical Update Update Date/Time: 02/11/25 06:54 Patient seen and examined in pre-operative holding area. No interval change in medical history or symptoms. Patient recalls previous discussion of benefits and alternatives to procedure. Continues to desire to proceed with left endoscopic possible open carpal tunnel release and left cubital tunnel release . Reviewed procedure, post-op expectations and risks including but not limited to bleeding, infection, injury to tendon/nerve/vessel, decreased hand function, stiffness, RSD, no change or worsening of symptoms. I discussed the possible use of assistants and their participation in the case. Patient stated understanding and signed the consent form wishing to proceed.
[2025-02-11 10:19] VITALS: BP 108/80; PULSE 67; RESP 16; TEMP 37.4; O2SAT 100
[2025-02-11] MEDS: ACETAMINOPHEN 500 MG TABLET 1000 MG PO (10:28)
[2025-02-11] MEDS: LACTATED RINGERS 1,000 ML 30 ML IV CONT (10:36)
[2025-02-11] MEDS: CLINDAMYCIN 900 MG/NS 50 ML 900 MG/50 ML PIGGYBACK 50 MG IVPB (11:23)
[2025-02-11] MEDS: LIDO 1%/EPINEPHRINE 1:100,000 20 ML VIAL (11:39)
[2025-02-11] MEDS: BUPivacaine HCL 0.5% 10 ML AMP 20 ML (11:39)
--- NOTE | 2025-02-11 11:41 | WPDANESEPPF ---
Anes - Initial Pre Proc Eval Procedure: Operation Date: 02/11/25 11:45 Proposed Procedures p Left Endoscopic Carpal Tunnel Release, Possible Open Carpal Tunnel Release - Rae Fernández MD s Left Cubital Tunnel Release - Rae Fernández MD Date/Time: 02/11/25 11:41 Surgeon: Rae Fernández MD Pre Op Diagnosis: Bilateral Carpal and Cubital Tunnel Syndrome Patient Data Age: 65 Gender: F Height: 1.75 m Weight: 81.65 kg Last Vital Signs Temp 99.4 F 02/11/25 10:19 Pulse 67 02/11/25 10:19 Resp 16 02/11/25 10:19 BP 108/80 02/11/25 10:19 Pulse Ox 100 02/11/25 10:19 O2 Del Method Room Air 02/11/25 10:19 Allergies Allergy/AdvReac Type Severity Reaction Status Date / Time Penicillins Allergy Severe Hives Verified 02/11/25 10:18 NSAIDS (Non-Steroidal AdvReac Unknown BLEEDING Verified 02/11/25 10:18 Anti-Inflamma ULCER Home Medications ?Medication ?Instructions ?Recorded ?Confirmed ?Type biotin 1 mg capsule 1 mg PO DAILY #30 caps 01/07/23 02/11/25 Rx knee high compression stockings #1 ea 01/07/23 08/12/24 Rx mecobalamin (vitamin B12) 1,000 1,000 mcg PO DAILY #30 tabs 01/07/23 02/11/25 Rx mcg chewable tablet ferrous gluconate 225 mg (27 mg 225 mg PO DAILY 02/07/23 02/11/25 History iron) tablet (Fergon) solifenacin 5 mg tablet (Vesicare) 5 mg PO DAILY #30 tabs 10/02/24 02/11/25 Rx trazodone 50 mg tablet 100 mg (2 x 50 mg) PO QHS 90 days 12/09/24 02/11/25 Rx #180 tabs hydrocodone 5 mg-acetaminophen 325 1 tablet PO Q6H PRN pain #120 tabs 01/11/25 02/11/25 Rx mg tablet pravastatin 10 mg tablet See Rx Instructions .Route 02/01/25 02/11/25 Rx .COMPLEX #90 tabs Patient hx anesthesia problems: none Family hx anesthesia problems: none Results Review: All pre-operative results and documents have been reviewed as part of the pre-operative evaluation. [facility] Past Medical History Medical History Tear of lateral meniscus of left knee Arthritis of left knee Encounter for immunization Chronic, continuous use of opioids Osteoarthritis involving multiple joints on both sides of body Left hip pain Numbness and tingling in both hands Pain of joint of both hands UGI bleed from gastric ulcers due to non-steroidal therapy Pneumonia right Lumbar spine pain secondary to spondylosis Carpal tunnel syndrome Taking multiple medications for chronic disease High risk medication use Lumbago of lumbar region with sciatica ABY (generalized anxiety disorder) Hypothyroidism Insomnia Back pain Anxiety Hyperlipidemia Surgical History Surgical History S/P rotator cuff repair Hx of arthroscopy of left knee August 27, 2022 -- partial lateral meniscectomy History of ear surgery left ear- multiple surgeries History of hip surgery right hip- [facility]ACHO 2010 Anterior Family History Family History Mother Diabetes mellitus Grandparent Family history of malignant neoplasm of breast in first degree relative Social History Social History (Updated 01/13/25 @ 08:05 by Celi Palencia) Social History: Caffeine-coffee Smoking packs per day: 1 Smoking cigarettes per day: 20.0 Years smoked: 35 Smoking pack-years: 35.00 Smoking status: Former smoker Tobacco type: cigarettes Second hand tobacco smoke exposure: No Smoking end date: 03/04/12 Additional smoking assessment comments: Quit 2012 Alcohol intake: current Drinks per week: 1 Alcohol use details: OCCASIONAL Substance use: never Substance use type: does not use Current Housing: Decline to Answer Concerned About Future Housing: Decline to Answer Difficulty Paying Gas/Electric Bills: Decline to Answer Difficulty Paying for Meds: Decline to Answer Currently Unemployed: Decline to Answer Education: Decline to Answer Difficulty w/ Childcare or Family Care: Decline to Answer Living arrangements: with family Additional living arrangements comments: Occupation/Education: occupation Additional occupation/education comments: [employer] Gender identity (if verbalized by the patient): Female Spiritual care concerns: No Anes - Eval Final PreProcedure Day of Procedure 02/11/25 11:41 Heart: regular rate and rhythm Lungs: clear to auscultation Airway: Mallampati scale class II Neurological: alert and oriented Last oral intake: >/= 8 hours ASA classification: III Anesthetic plan: proceed Anesthesia type and monitoring: general Results Review: All pre-operative results and documents have been reviewed as part of the pre-operative evaluation. Informed Consent: The patient's anesthetic plan and its attendant risks and benefits were discussed with the patient/family/POA. Questions were solicited and answers provided to the satisfaction of the patient/family/POA.
[2025-02-11 11:52] VITALS: BP 89/60; PULSE 66; RESP 15; O2SAT 95
[2025-02-11 12:02] VITALS: BP 81/58; PULSE 65; RESP 15; O2SAT 96
[2025-02-11 12:12] VITALS: BP 91/64; PULSE 63; RESP 16; O2SAT 95
== END 2025-02-11 12:27 | disposition home or self-care (01) ==
PROVIDERS: PCP Family Medicine; Visit Provider Plastic Surgery
PROC: 01N54ZZ Release Median Nerve, Percutaneous Endoscopic Approach (ICD-10-PCS; CPT 29848; principal; 2025-02-11 11:45)
PROC: (CPT 64718; 2025-02-11 11:45)
DX: G56.02 Carpal tunnel syndrome, left upper limb (principal); G56.22 Lesion of ulnar nerve, left upper limb
CPT/HCPCS: 29848; 64718

== ENCOUNTER 2025-02-18 07:40 | Outpatient (CLI) | payer OTHER, SELFPAY ==
--- OUTSIDE RECORDS SUMMARY | 2025-02-17 08:00 | XMS_ITS | Encounter Summary ---
Author Organization Formerly [facility] Address [address] [place] [address] Care Team Providers Care Infection Control Specialist Name Role Phone Alyson Montgomery MD Primary Care Provider [phone] Reason for Referral * Consultation (Routine) - Authorized Specialty Diagnoses / Procedures Referred By Contac t Referred To Contact Cardiology Diagnoses Postural dizziness with presyncope Alyson Montgomery MD [address] [place] [address] [address] [place] [address] Phone: tel: fax: [facility] Cardiology at [address] [place] [address] Phone: tel: fax: Referral ID Status Reason Start Date Expiration Date Visits Requested Visits Authorized [id number] Authorized Specialty Services Required 5 03/19/2026 1 1 Question Answer Please select the performing region: [facility] [[id number]] Please select the performing department: [facility] [[id number]] # of visits: 1 Comments Presyncope ICAL SUPERVISOR Reason for Visit * Reason Comments Follow-up Encounter Details Date Type Department Care Team (Late st Contact Info) Description 02/17/2025 8:00 AM SURGICAL SUPERVISOR Office Visit [facility] Residency Clinic at [address] [place] [address] Alyson Montgomery MD [address] [place] [address] [address]A [address] [place] [address] Hypothyroidism, unspecified type (Primary Dx); Need for vaccination; Iron deficiency; Postural dizziness with presyncope; Lumbago of lumbar region with sciatica; Mixed hyperlipidemia; Overactive bladder; Primary insomnia Social History Tobacco Use Types Packs/Day Years Used Date Smoking Tobacco: Former Cigarettes 1 32 1 - 2011 Smokeless Tobacco: Never Alcohol Use Standard Drinks/Week Comments Yes 0 (1 standard drink = 0.6 oz pur e alcohol) PHQ-2 Answer Date Recorded PHQ-2 Total Score (If total score is 3 or more points, staff should administer the PHQ-9) 0 02/17/2025 AUDIT-C Answer Date Recorded Q1: How often do you have a drink containing alc ohol? Monthly or less 02/17/2025 Q2: How many drinks containi ng alcohol do you have on a typical day when you are drinking? 1 or 2 02/17/2025 Q3: How often do you have si x or more drinks on one occasion? Never 02/17/2025 Comments No Sex and Gender Information Value Date Recorded Sex Assigned at Not on file Legal Sex Female 9:16 AM CDT Gender Identity Female 05/01/2022 12:12 PM SURGICAL SUPERVISOR Sexual Orientation Straight 05/01/2022 12 :12 PM SURGICAL SUPERVISOR documented as of this encounter Last Filed Vital Signs Vital Sign Reading Time Taken Comments Blood Pressure 98/65 02/17/2025 8:10 AM SURGICAL SUPERVISOR Pulse 78 02/17/2025 8:10 AM SURGICAL SUPERVISOR Temperature 36.8 C (98.2 F) 02/17/2025 8:10 AM SURGICAL SUPERVISOR Respiratory Rate 18 02/17/2025 8:10 AM SURGICAL SUPERVISOR Oxygen Saturation 97% 02/17/2025 8:10 AM SURGICAL SUPERVISOR Inhaled Oxygen Concentration - - Weight 82.7 kg (182 lb 4.8 oz) 02/17/2025 8:10 A M SURGICAL SUPERVISOR Height 175.3 cm (5' 9.02) 02/17/2025 8:10 AM CS T Body Mass Index 26.91 02/17/2025 8:10 AM SURGICAL SUPERVISOR documented in this encounter Functional Status * In the past year, patient experienced: Question Answer Date of Assessment Author One or more falls in the las t year 0 02/17/2025 8:08 AM Kaur Dent MA * BP Location Answer Date of Assessment Author Left arm 02/17/2025 8:10 AM Dann Dent MA * AUDIT-C Score Answer Date of Assessment Author 1 02/17/2025 8:09 AM Dann Dent MA * Alcohol Use Question Answer Date of Assessment Author Q1: How often do you have a drink containing alcohol? Monthly or less 02/17/2025 8:09 AM Kaur Dent MA Q2: How many drinks containing alcohol do you have on a typical day when you are drinking? 1 or 2 02/17/2025 8:09 AM Shabana Dent MA Q3: How often do you have six or more drinks on one occasion? Never 02/17/2025 8:09 AM Kaur Dent MA * BP Location Answer Date of Assessment Author Left arm 02/17/2025 8:10 AM Dann Dent MA documented as of this encounter Progress Notes * Alyson Montgomery MD - 02/17/2025 8:00 AM CST Images from the original note were not included. Subjective/Objective Patient ID: Jesse Maya is a 65 y.o. female. Chief Complaint Chief Complaint Patient presents with Follow-up HPI Here to establish care with the following concerns: She did feel very dizzy when she has been getting up to the bathroom. She felt like she was going to pass out associated with nausea on one occasion. She did have some low back pain and pain shootingdown her legs before one of her episodes. She had the second episode when sitting on the toilet. She did quit iron due to constipation. Her iron was 9.7 when she was trying to give blood so restarted iron 1 week ago. She has been feeling tired the past few days. Her blood pressure was low with surgery. She denies any chest pain or palpitations. She denies any melena or hematochezia. She denies any abdominal pain. She denies decreased exercisetolerance but is dizzy occasionally. Past Medical History: Diagnosis Date HL (hearing loss) Past Surgical History: Procedure Laterality Date BLADDER SURGERY EAR SURGERY HIP SURGERY Current Outpatient Medications Medication Sig Dispense Refill HYDROcodone-acetaminophen (NORCO) 5-325 mg per tablet Take 1 tablet by mouth every 6 (six) hours asneeded for pain 120 tablet 0 rosuvastatin (CRESTOR) 10 mg tablet Take 1 tablet (10 mg total) by mouth daily 90 tablet 3 solifenacin (VESIcare) 5 mg tablet Take 1 tablet (5 mg total) by mouth daily traZODone (DESYREL) 50 mg tablet TAKE 1 TABLET BY MOUTH EVERYDAY AT BEDTIME NEEDED FOR SLEEP No current facility-administered medications for this visit. Allergies as of 02/17/2025 - Reviewed 02/17/2025 Allergen Reaction Noted Penicillins Hives 12/07/2019 Nsaids (non-steroidal anti-inflammatory drug) Other (See comments) 06/17/2024 Social History Tobacco Use Smoking status: Former Current packs/day: 0.00 Average packs/day: 1 pack/day for 32.0 years (32.0 ttl pk-yrs) Types: Cigarettes Start date: 1979 Quit date: 2011 Years since quittin.9 Smokeless tobacco: Never Substance and Sexual Activity Drug use: Never Sexual activity: None Alcohol Use: Not At Risk (02/17/2025) AUDIT-C Frequency of Alcohol Consumption: Monthly or less Average Number of Drinks: 1 or 2 Frequency of Binge Drinking: Never Family History Problem Relation Age of Onset No Known Problems Mother Review of Systems Constitutional: Negative for appetite change, fatigue, fever and unexpected weight change. HENT: Negative for ear pain and rhinorrhea. Eyes: Negative for discharge. Respiratory: Negative for cough and shortness of breath. Cardiovascular: Negative for chest pain, palpitations and leg swelling. Gastrointestinal: Negative for abdominal pain, blood in stool, constipation and diarrhea. Endocrine: Negative for cold intolerance and heat intolerance. Genitourinary: Negative for dysuria. Musculoskeletal: Positive for back pain. Negative for gait problem. Skin: Negative for rash. Allergic/Immunologic: Negative for immunocompromised state. Neurological: Positive for light-headedness. Negative for headaches. Hematological: Does not bruise/bleed easily. Psychiatric/Behavioral: Negative for suicidal ideas. BP 98/65 (BP Location: Left arm, Patient Position: Sitting) Pulse 78 Temp 36.8 ??C (98.2 ??F) (Oral) Resp 18 Ht 175.3 cm (5' 9.02) Wt 82.7 kg (182 lb 4.8 oz) SpO2 97% BMI 26.91 kg/m?? Physical Exam Vitals and nursing note reviewed. Constitutional: Appearance: Normal appearance. She is obese. HENT: Head: Normocephalic and atraumatic. Right Ear: Tympanic membrane, ear canal and external ear normal. Left Ear: Tympanic membrane, ear canal and external ear normal. Nose: Nose normal. Mouth/Throat: Mouth: Mucous membranes are moist. Pharynx: Oropharynx is clear. Eyes: Conjunctiva/sclera: Conjunctivae normal. Pupils: Pupils are equal, round, and reactive to light. Cardiovascular: Rate and Rhythm: Normal rate and regular rhythm. Pulses: Normal pulses. Heart sounds: Normal heart sounds. No murmur heard. Pulmonary: Effort: Pulmonary effort is normal. Breath sounds: Normal breath sounds. Abdominal: General: Abdomen is flat. Bowel sounds are normal. Palpations: Abdomen is soft. There is no mass. Tenderness: There is no abdominal tenderness. Musculoskeletal: General: Normal range of motion. Right lower leg: No edema. Left lower leg: No edema. Skin: General: Skin is warm. Capillary Refill: Capillary refill takes less than 2 seconds. Findings: No rash. Neurological: General: No focal deficit present. Mental Status: She is alert. Mental status is at baseline. Gait: Gait normal. Psychiatric: Mood and Affect: Mood normal. Behavior: Behavior normal. Thought Content: Thought content normal. Judgment: Judgment normal. Assessment & Plan Need for vaccination Tdap and pneumococcal vaccine given. Influenza vaccine given at work. Orders: Tdap vaccine greater than or equal to 7yo IM Pneumococcal conjugate vaccine 20-valent IM (Prevnar-20) Iron deficiency Lab ordered Orders: CBC with auto differential; Future Ferritin; Future Erythrocyte sedimentation rate; Future Postural dizziness with presyncope Patient has low blood pressure in addition to presyncope. May be vasovagal but her symptoms persisted for hours after which argues against pure vasovagal. Will consult cardiology. Lab ordered. Orders: Ambulatory referral to Cardiology; Future Comprehensive metabolic panel; Future Erythrocyte sedimentation rate; Future Hypothyroidism, unspecified type Lab ordered Orders: TSH W/REFL FT4; Future Lumbago of lumbar region with sciatica Patient has chronic use of Hydrocodone. Discussed risk and benefit of senior care use of opioids. Urine drug screen ordered. Patient is unable to take NSAID due to GI bleed in the past. Mixed hyperlipidemia Rosuvastatin 10mg daily Lab ordered Overactive bladder Vesicare 5mg daily Primary insomnia Trazodone 50mg daily at Follow up in 4 months. No follow-ups on file. Alyson Montgomery MD ICAL SUPERVISOR ICAL SUPERVISOR documented in this encounter Miscellaneous Notes * Assessment & Plan Note - Alyson Montgomery MD - 02/17/2025 8:00 AM CSTAssociated Problem(s): Iron deficiency Lab ordered Orders: CBC with auto differential; Future Ferritin; Future Erythrocyte sedimentation rate; Future ICAL SUPERVISOR * Assessment & Plan Note - Alyson Montgomery MD - 02/17/2025 8:00 AM CSTAssociated Problem(s): Lumbago of lumbar region with sciatica Patient has chronic use of Hydrocodone. Discussed risk and benefit of reimbursement rep use of opioids. Urine drug screen ordered. Patient is unable to take NSAID due to GI bleed in the past. ICAL SUPERVISOR * Assessment & Plan Note - Alyson Montgomery MD - 02/17/2025 8:00 AM CSTAssociated Problem(s): Mixed hyperlipidemia Rosuvastatin 10mg daily Lab ordered ICAL SUPERVISOR * Assessment & Plan Note - Alyson Montgomery MD - 02/17/2025 8:00 AM CSTAssociated Problem(s): Overactive bladder Vesicare 5mg daily ICAL SUPERVISOR * Assessment & Plan Note - Alyson Montgomery MD - 02/17/2025 8:00 AM CSTAssociated Problem(s): Primary insomnia Trazodone 50mg daily at HS Follow up in 4 months. ICAL SUPERVISOR documented in this encounter Plan of Treatment Scheduled Orders Name Type Priority Associated Diagnoses Orde r Schedule CBC with auto differential Lab Routine Iron deficiency Expected: 02/17/2025, Expires: 02/17/2026 Comprehensive metabolic panel Lab Routine Postural dizziness with presyncope Expected: 02/17/2025, Expires: 02/17/2026 TSH W/REFL FT4 Lab Routine Hypothyroidism, unspecified type Expected: 02/17/2025, Expires: 02/17/2026 Ferritin Lab Routine Iron deficiency Expected: 02/24/2025 (Approximate), Expires: 02/17/2026 Erythrocyte sedimentation rate Lab Routine Iron deficiency Postural dizziness with presyncope Expected: 02/20/2025, Expires: 02/17/2026 Scheduled Referrals Name Type Priority Associated Diagnoses Order Schedule Ambulatory referral to Cardiology Outpatient Referral Routine Postural dizziness with presyncope Expected: 03/03/2025 (Approximate), Expires: 02/17/2026 documented as of this encounter Visit Diagnoses Diagnosis Hypothyroidism, unspecified type- Primary Need for vaccination Need for prophylactic vaccination and inoculation against unspecified single disease Iron deficiency Disorders of iron metabolism Postural dizziness with presyncope Lumbago of lumbar region with sciatica Mixed hyperlipidemia Overactive bladder Hypertonicity of bladder Primary insomnia Persistent disorder of initiating or maintaining sleep documented in this encounter Historical Medications * This list may reflect changes made after this encounter. solifenacin (VESIcare) 5 mg tablet Take 1 tablet (5 mg total) by mouth daily added in this encounter Orders Immunization/Injection Count Last Ordered Date First Ordered Date PNEUMOCOCCAL CONJUGATE VACCI NE 20 VALENT IM 1 02/17/2025 TDAP VACCINE GREATER THAN OR EQUAL TO 7YO IM 1 02/17/2025 documented in this encounter Care Teams Infection Control Specialist Relationship Specialty Start Date End Date Alyson Montgomery MD PCP - General Family Medicine 05/03/22 documented as of this encounter
--- NOTE | ~2025-02-18 | XR_ITS ---
EXAMINATION: XR knee RT min 4V DATE: 02/18/2025 08:06 INDICATION: Pain TECHNIQUE: Right knee were obtained. COMPARISON: None. FINDINGS: Mild tricompartmental degenerative changes consistent with osteoarthritis. No acute or aggressive bony or soft tissue process seen. IMPRESSION: 1. No acute or aggressive bony soft tissue process. 2. For persisting knee pain refractory to conservative therapy, correlation with knee MRI may provide additional beneficial information. Reviewed, dictated and finalized at location A. WELL DRILLING MANAGER IMPRESSION: 1. No acute or aggressive bony soft tissue process. 2. For persisting knee pain refractory to conservative therapy, correlation wit h knee MRI may provide additional beneficial information.
--- NOTE | ~2025-02-18 | XR_ITS ---
EXAMINATION: XR knee LT min 4V DATE: 02/18/2025 08:06 INDICATION: Pain TECHNIQUE: Left knee x-rays were obtained. COMPARISON: None. FINDINGS: Mild tricompartmental degenerative changes consistent with osteoarthritis. Prominent calcification at the tibial tubercle possibly associated with previous injury or apophysitis. No acute or aggressive bony or soft tissue process seen. IMPRESSION: 1. No acute or aggressive bony soft tissue process. Chronic findings as above. 2. For persisting knee pain refractory to conservative therapy, correlation with knee MRI may provide additional beneficial information. Reviewed, dictated and finalized at location A. S FURNACE TENDER IMPRESSION: 1. No acute or aggressive bony soft tissue process. Chronic findings as above. 2. For persisting knee pain refractory to conservative therapy, correlation wit h knee MRI may provide additional beneficial information.
--- OUTSIDE RECORDS SUMMARY | 2025-02-18 07:47 | XMS_ITS | Clinical Summary ---
Author Organization [facility] Address [address] [place] [address] Care Team Providers Care Dealer Analyst Name Role Phone Alyson Montgomery MD Primary Care Provider [phone] Allergies Active Allergy Reactions Criticality Noted Date Comments Nsaids (Non-Steroidal Anti-Inflammatory Drug) Other (See comments) 06/17/2024 Penicillins Hives High 12/07/2019 Medications traZODone (DESYREL) 50 mg tablet TAKE 1 TABLET BY MOUTH EVERYDAY AT BEDTIME NEEDED FOR SLEEP 2 Active rosuvastatin (CRESTOR) 10 mg tablet Take 1 tablet (10 mg total) by mouth daily 90 tablet 3 4 Active HYDROcodone-hector taminophen (NORCO) 5-325 mg per tabletIndicatio ns:Lumbar disc disorder Take 1 tablet by mouth every 6 (six) hours as needed for pain 120 tablet 5 Active solifenacin (VESIcare) 5 mg tablet Take 1 tablet (5 mg total) by mouth daily Active HYDROcodone-hector taminophen (NORCO) 5-325 mg per tablet Take 1 tablet by mouth every 6 (six) hours as needed 02/12/20 25 Discontinu ed(Reorder ) Active Problems Problem Noted Date Diagnosed Date Anemia 02/17/2025 Lumbago of lumbar region with sciatica 5 Assessment & Plan (02/17/2025 10:11 AM REVENUE COLLECTOR): Patient has chronic use of Hydrocodone. Discussed risk and benefit of keno terminal operator use of opioids. Urine drug screen ordered. Patient is unable to take NSAID due to GI bleed in the past. Iron deficiency 02/17/2025 Assessment & Plan (02/17/2025 10:11 AM REVENUE COLLECTOR): Lab ordered Orders: CBC with auto differential; Future Ferritin; Future Erythrocyte sedimentation rate; Future Mixed hyperlipidemia 02/17/2025 Assessment & Plan (02/17/2025 10:11 AM REVENUE COLLECTOR): Rosuvastatin 10mg daily Lab ordered Overactive bladder 02/17/2025 Assessment & Plan (02/17/2025 10:11 AM REVENUE COLLECTOR): Vesicare 5mg daily Primary insomnia 02/17/2025 Assessment & Plan (02/17/2025 10:11 AM REVENUE COLLECTOR): Trazodone 50mg daily at Follow up in 4 months. Perforation of left tympanic membrane 12/31/2019 Chronic suppurative otitis media of left ear Mixed conductive and sensori neural hearing loss of left ear with restricted hearing of right ear 12/07/2019 Encounters Date Type Department Care Team Description 02/17/2025 8:00 AM REVENUE COLLECTOR Office Visit [facility] Residency Clinic at [address] [address] Alyson Montgomery MD Hypothyroidism, unspecified type (Primary Dx); Need for vaccination; Iron deficiency; Postural dizziness with presyncope; Lumbago of lumbar region with sciatica; Mixed hyperlipidemia; Overactive bladder; Primary insomnia 02/17/[address] [facility] Residency Clinic at [address] [address] Alyson Montgomery MD Lumbago of lumbar region with sciatica (Primary Dx); Opioid use 02/11/[address] [facility] Residency Clinic at [address] [address] Alyson Montgomery MD Lumbar disc disorder (Primary Dx) 02/08/[address] [facility] Residency Clinic at [address] [phone] Alyson Montgomery MD Medical Question/Miscellaneou s from Last 3 Months Immunizations Immunization Administration Dates Next Due Flucelvax Influenza Quad 01/18/2018 Influenza, Quadrivalent, Saray l Culture-based MDCK, Antibiotic Free, Intramuscular 01/18/2018 Influenza, Quadrivalent, Spl it, Preservative Free, Intramuscular 11/20/2022,12/06/2021,12/27/2020,11/07,11/03/2019,12/01/2018 Influenza, Trivalent, IM (MDV) 10/19/2013,2012 Influenza, Trivalent, Preser vative Free, Intramuscular 11/26/2024,12/11/2023,01/12/2017 Pfizer SARS-CoV-2 Monovalent Vaccination (12+ Yrs) PURPLE 09/18/2021 Pneumococcal Conjugate Pcv20 02/17/2025 RSV Vaccine, Pref, Recombina nt, Subunit, Adjuvanted, PF, IM (Arexvy) 11/20/2022 Tdap 02/17/2025,08/13/2012 Surgical History Surgery Date Site/Laterality Comments HIP [...] CDT Gender Identity Female 05/01/2022 12:12 PM REVENUE COLLECTOR Sexual Orientation Straight 05/01/2022 12 :12 PM REVENUE COLLECTOR Last Filed Vital Signs Vital Sign Reading Time Taken Comments Blood Pressure 98/65 02/17/2025 8:10 AM REVENUE COLLECTOR Pulse 78 02/17/2025 8:10 AM REVENUE COLLECTOR Temperature 36.8 C (98.2 F) 02/17/2025 8:10 AM REVENUE COLLECTOR Respiratory Rate 18 02/17/2025 8:10 AM REVENUE COLLECTOR Oxygen Saturation 97% 02/17/2025 8:10 AM REVENUE COLLECTOR Inhaled Oxygen Concentration - - Weight 82.7 kg (182 lb 4.8 oz) 02/17/2025 8:10 A M REVENUE COLLECTOR Height 175.3 cm (5' 9.02) 02/17/2025 8:10 AM CS T Body Mass Index 26.91 02/17/2025 8:10 AM REVENUE COLLECTOR Plan of Treatment Health Maintenance Due Date Last Done Comments Breast Cancer Screening-Mammogram 1959 Colon Cancer Screening-Colonoscopy 1959 Hepatitis C Screening 1959 Osteoporosis Screening-Bone Density Scan 1959 Hepatitis B Screening 1977 Lung Cancer Screening 2009 Zoster Vaccine (1 of 2) 2009 Well Visit 65+ 02/05/2024 Covid-19 Vaccine (2024-2 6 season) 2024 11/20/2022, 09/18/2021, 09/18/2021, Additional history exists Depression Screening 02/17/2026 02/17/2025 Fall Risk Assessment 02/17/2026 02/17/2025, 01/26/20 20 DTaP/Tdap/Td Vaccine (3 - Td or Tdap) 02/17/2035 02/17/2025, 08/13/2012 Influenza Vaccine Completed 11/26/2024, , 11/20/2022, Additional history exists Pneumococcal vaccine 65+ Completed 02/17/2025 [facility] Sub[facility] Plan / Payer (Ef fective 2021-Present) Name:Jesse Maya Relation to Subscriber:Self Name:Jesse Maya Payer ID:[id number] (NA) Type:CIGNA HMO/PPO Address: [place] [id number] [employer] Member Subscriber Plan / Payer ( fective 2021-Present) Name:Jesse Maya Relation to Subscriber:Self Name:Jesse Maya Payer ID:[id number] (NA) Type:CIGNA HMO/PPO Address: [place] [id number] Care Teams Dealer Analyst Relationship Specialty Start Date End Date Alyson Montgomery MD PCP - General Family Medicine 05/03/22
--- OUTSIDE RECORDS SUMMARY | 2025-02-18 07:48 | XMS_ITS | Clinical Summary ---
Author Organization [facility] [employer] [place] Address [address] [email or web address] [address] Care Team Providers Care Robotics Software Engineer Name Role Phone Alyson Montgomery MD Primary Care Provider [phone] Allergies Active Allergy Reactions Criticality Noted Date Comments Penicillins Hives High 12/07/2019 Medications traZODone (DESYREL) 50 mg tablet Take 1 Tablet by mouth nightly as needed. 01/24/2022 Active HYDROcodone-hector taminophen (NORCO) 5-325 mg tablet Take 1 Tablet by mouth every 6 hours as needed. 03/20/2022 Active Active Problems No known active problems Encounters Date Type Department Care Team Description 01/19/2025 External Device Data [facility] Provider, Abstract 12/23/2024 External Device Data [facility] Provider, Abstract 12/22/2024 External Device Data [facility] Provider, Abstract 11/26/2024 1:00 PM CDT Immunization [facility] at [facility] [address] [email or web address] [address] Need for prophylactic vaccination and inoculation against influenza (Primary Dx) from Last 3 Months Immunizations Immunization Administration [...] Years Used Date Smoking Tobacco: Former Cigarettes 0 Q uit: 04/16/2012 Smokeless Tobacco: Never Tobacco [...] Comments Blood Pressure 102/64 04/08/2024 10:02 AM DIRECTOR OF APPLICATION DEVELOPMENT Pulse 65 04/19/2022 2:45 PM DIRECTOR OF APPLICATION DEVELOPMENT Temperature 36.7 C (98 F) 04/19/2022 2:45 PM DIRECTOR OF APPLICATION DEVELOPMENT Respiratory Rate 18 04/19/2022 2:45 PM DIRECTOR OF APPLICATION DEVELOPMENT Oxygen Saturation 97% 04/19/2022 2:45 PM DIRECTOR OF APPLICATION DEVELOPMENT Inhaled Oxygen Concentration - - Weight 82.6 kg (182 lb 3.2 oz) 04/08/2024 10:02 AM DIRECTOR OF APPLICATION DEVELOPMENT Height 175.3 cm (5' 9) 04/08/2024 10:02 AM DIRECTOR OF APPLICATION DEVELOPMENT Body Mass Index 26.91 04/08/2024 10:02 AM DIRECTOR OF APPLICATION DEVELOPMENT Plan of Treatment Health Maintenance Due Date [...] 12/06/2021 Insurance MEDICARE PART A HOSPITAL ONLY [facility] [place] [facility] Address: [facility] [address] [place] [address] Care Teams Robotics Software Engineer Relationship Specialty Start Date End Date Alyson Montgomery MD [address] [place] [address] PCP - General Family Practice 05/01/22
--- OUTSIDE RECORDS SUMMARY | 2025-02-18 07:49 | XMS_ITS | Encounter Summary ---
Author Organization [facility] Address [address] [place] [address] Care Team Providers Care Imaging Aide Name Role Phone Alyson Montgomery MD Primary Care Provider [phone] Reason for Visit * Reason Onset Date Comments Medical Question/Miscellaneous 02/08/2025 Encounter Details Date Type Department Care Team (Late st Contact Info) Description 02/08/[address] [facility] Residency Clinic at [address] [place] [address] Alyson Montgomery MD [address] [place] [address] [facility] [address] [place] [address] Medical Question/Miscellaneous Social History Tobacco Use Types Packs/Day Years [...] CDT Gender Identity Female 05/01/2022 12:12 PM AEROBICS INSTRUCTOR Sexual Orientation Straight 05/01/2022 12 :12 PM AEROBICS INSTRUCTOR documented as of this encounter Miscellaneous Notes * Telephone Encounter - Pineda Haskins MA - 02/11/2025 2:29 PM CST Pt is aware. BICS INSTRUCTOR * Telephone Encounter - Lisa Wilson - 02/09/2025 11:10 AM CST Call Back Caller???s Concern: Patient called and stated that previous prescriber will not fill the medication-please call back at [phone] Does message need to be routed? Yes-Action Needed BICS INSTRUCTOR * Telephone Encounter - Andree Sandoval - 02/08/2025 9:21 AM CST Medical Question/Miscellaneous Caller???s Concern: Patient needing refill of pain meds prior to first appt with former PCP. She ishaving surgery on 02/11 (was told her PCP should continue to prescribe pain meds). Patient's appt in 02/01 was cancelled by practice due to weather. STEAM POWERPLANT SUPERVISOR looked and nothing sooner than what's scheduledand before 02/11. Patient agreed to call former practice, will call back if any issues. Does message need to be routed? Yes-FYI Only BICS INSTRUCTOR documented in this encounter Plan of Treatment Not on file documented as of this encounter Visit Diagnoses Not on filedocumented in this encounter Care Teams Imaging Aide Relationship Specialty Start Date End Date Alyson Montgomery MD PCP - General Family Medicine 05/03/22 documented as of this encounter
--- OUTSIDE RECORDS SUMMARY | 2025-02-18 07:49 | XMS_ITS | Encounter Summary ---
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); Opioid use Social History Tobacco Use Types Packs/Day Years [...] CDT Gender Identity Female 05/01/2022 12:12 PM SPRUE KNOCKER Sexual Orientation Straight 05/01/2022 12 :12 PM SPRUE KNOCKER documented as of this encounter Plan of Treatment Scheduled Orders Name Type Priority Associated Diagnoses Orde r Schedule DRUG MONITOR, BASE PANEL, SCREEN, URINE Lab Routine Lumbago of lumbar region with sciatica Opioid use Expected: 02/20/2025, Expires: 02/17/2026 documented as of this encounter Visit Diagnoses Diagnosis Lumbago of lumbar region with sciatica- Primary Opioid use documented in this encounter Care Teams Steward/Stewardess Chief Cargo Vessel Relationship Specialty Start Date End Date Alyson Montgomery MD PCP - General Family Medicine 05/03/22 documented as of this encounter
== END 2025-02-18 07:41 | disposition home or self-care (01) ==
PROVIDERS: Visit Provider Orthopaedic Surgery
DX: M25.562 Pain in left knee (principal); M25.561 Pain in right knee
CPT/HCPCS: 73564